=== PATIENT | female | born 1955 | race Caucasian/White ===

== ENCOUNTER 2019-03-10 13:12 | Emergency (ER) | payer MEDICAID ==
[~2019-03-10] VITALS: Ht 172.7 cm; Wt 87.5 kg
--- NOTE | 2019-03-10 13:38 | NUR ---
LOWER ABDOMINAL PAIN AND DIARRHEA X 24 HRS, PT AAOX4, -SOB, NAD NOTED, VSS ,PENDING MD GOTTI
[2019-03-10 14:22] LABS: BASOPHILS # (AUTO) 0.1 /CMM (0.0-0.2); EOSINOPHILS % (AUTO) 2.7 % (0.0-6.0); HEMATOCRIT 43 % (33-45); LYMPHOCYTES # (AUTO) 2.2 /CMM (0.8-4.8); LYMPHOCYTES % (AUTO) 26.1 % (20.0-44.0); MEAN CORPUSCULAR HGB CONC 33 g/dl (31.0-36.0); MEAN CORPUSCULAR VOLUME 88 fL (82-100); MONOCYTES # (AUTO) 0.7 /CMM (0.1-1.30); MONOCYTES % (AUTO) 8.3 % (2.0-12.0); NEUTROPHILS # (AUTO) 5.1 /CMM (1.8-8.9); NEUTROPHILS % (AUTO) 61.9 % (43.0-81.0); PLATELET COUNT (AUTO) 199 /CMM (150-450); RED BLOOD CELL COUNT(AUTO) 4.86 MIL/uL (4.0-5.2); WHITE BLOOD COUNT (AUTO) 8.2 K/uL (4.3-11.0)
[2019-03-10 14:38] LABS: ALANINE AMINOTRANSFERASE 101 U/L (12-78); ALBUMIN 3.8 g/dL (3.4-5.0); ALKALINE PHOSPHATASE 75 U/L (46-116); ASPARTATE AMINOTRANSFERASE 58 U/L (15-37); BILIRUBIN,DIRECT 0.1 mg/dL (0.0-0.2); BILIRUBIN,TOTAL 0.3 mg/dL (0.2-1.0); CALCIUM, SERUM 9.2 mg/dL (8.5-10.1); CARBON DIOXIDE 27 mmol/L (21-32); CHLORIDE 108 mmol/L (98-107); CREATININE 1.4 mg/dL (0.6-1.3); GLUCOSE 89 mg/dL (74-106); LIPASE 181 U/L (73-393); POTASSIUM 3.8 mmol/L (3.5-5.1); SODIUM SERUM 142 mmol/L (136-145); TOTAL PROTEIN, SERUM 7.9 g/dL (6.4-8.2); UREA NITROGEN, BLOOD 19 mg/dL (7-18)
[2019-03-10] MEDS ORDERED: MORPHINE SULFATE INJ 2 MG/ML DISP.SYRIN IV ONE (16:00)
[2019-03-10] MEDS ORDERED: IV NS 0.9% 1,000 ML BAG IV ONE (16:00)
[2019-03-10] MEDS ORDERED: ONDANSETRON HCL/PF 4 MG/2 ML VIAL IVP ONE (16:00)
[2019-03-10 16:03] LABS: APPEARANCE,URINE Clear (CLEAR); BILIRUBIN,URINE Negative (NEGATIVE); BLOOD, URINE Trace-intact Ery/uL (NEGATIVE); COLOR,URINE Yellow (YELLOW); KETONES,URINE Negative (NEGATIVE); LEUKOCYTE ESTERASE ,URINE Negative (NEGATIVE); NITRITE, URINE Negative (NEGATIVE); PROTEIN,URINE Negative (NEGATIVE); UGLUCOSE Negative (NEGATIVE); UROBILINOGEN,URINE 0.2 EU/dL (0.2)
[2019-03-10 16:17] LABS: WBC,URINE 0-2 /HPF (0-3)
[2019-03-10 16:18] LABS: BACTERIA,URINE Few /HPF (None Seen); SQUAMOUS EPITHELIAL CELL,UR Few /HPF (None Seen)
[2019-03-10 16:52] VITALS: BP 168/101
--- NOTE | 2019-03-10 17:35 | NUR ---
Patient discharged to home in stable condition. Written and verbal after care instructions given. Patient verbalizes understanding of instruction. IV removed. Catheter intact and site benign. Pressure and 4x4 applied to site. No bleeding noted.
== END 2019-03-10 17:36 | disposition home or self-care (01) ==
LOC: ER 13:19
DX: K57.30 Diverticulosis of large intestine without perforation or abscess without bleeding (principal); R74.0 Nonspecific elevation of levels of transaminase and lactic acid dehydrogenase [LDH]; I12.9 Hypertensive chronic kidney disease with stage 1 through stage 4 chronic kidney disease, or unspecified chronic kidney disease; N18.9 Chronic kidney disease, unspecified; M79.7 Fibromyalgia; Z98.890 Other specified postprocedural states; Z88.0 Allergy status to penicillin; Z88.6 Allergy status to analgesic agent; Z88.5 Allergy status to narcotic agent; Z60.2 Problems related to living alone; Z85.53 Personal history of malignant neoplasm of renal pelvis
CPT/HCPCS: 36415; 80048-TC; 80076-TC; 81000-TC; 83690-TC; 84484-TC; 85025-TC

== ENCOUNTER 2019-04-27 10:19 | Emergency (ER) | payer MEDICAID ==
[~2019-04-27] VITALS: Ht 172.7 cm; Wt 87.5 kg
[2019-04-27 11:11] LABS: BASOPHILS # (AUTO) 0.1 /CMM (0.0-0.2); BASOPHILS % (AUTO) 1.3 % (0.0-2.0); EOSINOPHILS % (AUTO) 5.2 % (0.0-6.0); HEMATOCRIT 40 % (33-45); HEMOGLOBIN 13.2 g/dL (11.5-14.8); LYMPHOCYTES # (AUTO) 1.5 /CMM (0.8-4.8); LYMPHOCYTES % (AUTO) 24.9 % (20.0-44.0); MEAN CORPUSCULAR HGB CONC 33 g/dl (31.0-36.0); MEAN CORPUSCULAR VOLUME 88 fL (82-100); MONOCYTES # (AUTO) 0.7 /CMM (0.1-1.30); MONOCYTES % (AUTO) 11.3 % (2.0-12.0); NEUTROPHILS # (AUTO) 3.5 /CMM (1.8-8.9); NEUTROPHILS % (AUTO) 57.3 % (43.0-81.0); PLATELET COUNT (AUTO) 175 /CMM (150-450); RED BLOOD CELL COUNT(AUTO) 4.51 MIL/uL (4.0-5.2); WHITE BLOOD COUNT (AUTO) 6.2 K/uL (4.3-11.0)
[2019-04-27 11:15] LABS: APPEARANCE,URINE Clear (CLEAR); BILIRUBIN,URINE Negative (NEGATIVE); BLOOD, URINE Moderate Ery/uL (NEGATIVE); COLOR,URINE Yellow (YELLOW); KETONES,URINE Negative (NEGATIVE); LEUKOCYTE ESTERASE ,URINE Trace (NEGATIVE); NITRITE, URINE Negative (NEGATIVE); PROTEIN,URINE Negative (NEGATIVE); UGLUCOSE Negative (NEGATIVE)
[2019-04-27 11:17] LABS: CARBON DIOXIDE 25 mmol/L (21-32); CHLORIDE 106 mmol/L (98-107); CREATININE 1.2 mg/dL (0.6-1.3); GLUCOSE 107 mg/dL (74-106); POTASSIUM 4.4 mmol/L (3.5-5.1); SODIUM SERUM 142 mmol/L (136-145); UREA NITROGEN, BLOOD 29 mg/dL (7-18)
[2019-04-27 11:20] LABS: BACTERIA,URINE Few /HPF (None Seen); SQUAMOUS EPITHELIAL CELL,UR Few /HPF (None Seen)
--- NOTE | 2019-04-27 11:30 | NUR ---
"Threw my back out couple days ago woke up this am felt UTI symptoms but then I started feeling weird/Faint/dizzy/out of breath", pt awake, alert, -sob, nad noted, vss, pending md gaxiola
[2019-04-27] MEDS ORDERED: ONDANSETRON HCL/PF 4 MG/2 ML VIAL ONE (11:58)
[2019-04-27] MEDS ORDERED: ONDANSETRON HCL/PF - ER 4 MG/2 ML VIAL IV ONE (12:00)
[2019-04-27 12:45] VITALS: BP 133/90
== END 2019-04-27 13:08 | disposition home or self-care (01) ==
LOC: ER 10:20
DX: N39.0 Urinary tract infection, site not specified (principal); R07.89 Other chest pain; M54.5 Low back pain; I10 Essential (primary) hypertension; K58.9 Irritable bowel syndrome, unspecified; M79.7 Fibromyalgia; M32.9 Systemic lupus erythematosus, unspecified; Z90.5 Acquired absence of kidney; Z85.53 Personal history of malignant neoplasm of renal pelvis; Z88.0 Allergy status to penicillin; Z88.6 Allergy status to analgesic agent; Z88.5 Allergy status to narcotic agent; Z60.2 Problems related to living alone
CPT/HCPCS: 36415; 71045; 80048; 81001; 84484; 85025; 93005 ×3; 96374; 99284; J2405; 81000-TC

== ENCOUNTER 2019-06-19 04:47 | Emergency (ER) | payer MEDICAID ==
[~2019-06-19] VITALS: Ht 172.7 cm; Wt 87.1 kg
[2019-06-19] MEDS ORDERED: MORPHINE SULFATE INJ 4 MG/ML DISP.SYRIN ONE ×2 (05:27→07:29)
[2019-06-19] MEDS ORDERED: ONDANSETRON HCL/PF 4 MG/2 ML VIAL ONE (05:27)
[2019-06-19] MEDS ORDERED: ONDANSETRON HCL/PF 4 MG/2 ML VIAL IVP ONE (05:30)
[2019-06-19] MEDS ORDERED: MORPHINE SULFATE INJ 2 MG/ML DISP.SYRIN IV ONE ×2 (05:30→07:30)
[2019-06-19] MEDS ORDERED: IV NS 0.9% 1,000 ML BAG IV ONE (05:30)
--- NOTE | 2019-06-19 05:40 | NUR ---
PT AAOX4. AMBULATORY WITH STEADY GAIT. C/P LOWER ABD PAIN. PT NOTED SHE COULDNT SLEEP. VSS. RR EVEN AND UNLABORED, NO ACUTE DISTRESS NOTED. VSS. AWAITING MD FOR EVAL. WILL CONTINUE TO MONITOR.
--- NOTE | 2019-06-19 05:49 | NUR ---
SITE SURVEYOR AT BEDSIDE, LABS AND URINE GIVEN. VSS.
[2019-06-19 05:50] LABS: BASOPHILS # (AUTO) 0.1 /CMM (0.0-0.2); BASOPHILS % (AUTO) 1.4 % (0.0-2.0); HEMATOCRIT 41 % (33-45); HEMOGLOBIN 13.6 g/dL (11.5-14.8); LYMPHOCYTES # (AUTO) 2.1 /CMM (0.8-4.8); MEAN CORPUSCULAR HGB CONC 34 g/dl (31.0-36.0); MEAN CORPUSCULAR VOLUME 87 fL (82-100); MONOCYTES # (AUTO) 0.8 /CMM (0.1-1.30); MONOCYTES % (AUTO) 8.6 % (2.0-12.0); NEUTROPHILS # (AUTO) 6.5 /CMM (1.8-8.9); PLATELET COUNT (AUTO) 204 /CMM (150-450); RED BLOOD CELL COUNT(AUTO) 4.67 MIL/uL (4.0-5.2); WHITE BLOOD COUNT (AUTO) 9.8 K/uL (4.3-11.0)
[2019-06-19 05:53] LABS: APPEARANCE,URINE Clear (CLEAR); BILIRUBIN,URINE Negative (NEGATIVE); BLOOD, URINE Small Ery/uL (NEGATIVE); COLOR,URINE Yellow (YELLOW); KETONES,URINE Negative (NEGATIVE); LEUKOCYTE ESTERASE ,URINE Trace (NEGATIVE); NITRITE, URINE Negative (NEGATIVE); PH,URINE 6.5 (5.0-8.0); PROTEIN,URINE Negative (NEGATIVE); UGLUCOSE Negative (NEGATIVE); UROBILINOGEN,URINE 0.2 EU/dL (0.2)
[2019-06-19 06:00] LABS: CALCIUM, SERUM 8.5 mg/dL (8.5-10.1); CREATININE 1.1 mg/dL (0.6-1.3); POTASSIUM 4.3 mmol/L (3.5-5.1)
--- NOTE | 2019-06-19 06:03 | NUR ---
US AT BEDSIDE
[2019-06-19 06:06] LABS: ALBUMIN 3.5 g/dL (3.4-5.0); BILIRUBIN,DIRECT 0.1 mg/dL (0.0-0.2); BILIRUBIN,TOTAL 0.6 mg/dL (0.2-1.0); TOTAL PROTEIN, SERUM 7.5 g/dL (6.4-8.2)
[2019-06-19 06:36] LABS: BACTERIA,URINE Few /HPF (None Seen); SQUAMOUS EPITHELIAL CELL,UR Few /HPF (None Seen)
--- NOTE | 2019-06-19 06:48 | NUR ---
PT AMBULATED TO RESTROOM
--- NOTE | 2019-06-19 06:53 | NUR ---
US TECH AT BEDSIDE.
[2019-06-19] MEDS ORDERED: LABE100T5 PO (07:39)
[2019-06-19] MEDS ORDERED: ATOR20TA PO (07:39)
[2019-06-19] MEDS ORDERED: LEVO50TA8 PO (07:39)
[2019-06-19] MEDS ORDERED: LOSA100T31 PO (07:39)
[2019-06-19] MEDS ORDERED: PANT40TA4 PO (07:39)
[2019-06-19] MEDS ORDERED: HYDR200T4 PO (07:39)
[2019-06-19] MEDS ORDERED: MONT10TA22 PO (07:39)
[2019-06-19] MEDS ORDERED: DICY20TA11 PO (07:39)
[2019-06-19] MEDS ORDERED: GABA-532 PO (07:39)
[2019-06-19] MEDS ORDERED: ONDA4TAB11 PO (07:39)
[2019-06-19 08:00] VITALS: BP 145/77
--- NOTE | 2019-06-19 08:00 | NUR ---
Patient discharged to home in stable condition. Written and verbal after care instructions given. Patient verbalizes understanding of instruction.IV removed. Catheter intact and site benign. Pressure and 4x4 applied to site. No bleeding noted.
== END 2019-06-19 08:00 | disposition home or self-care (01) ==
LOC: ER 04:48
DX: R10.30 Lower abdominal pain, unspecified (principal); R10.2 Pelvic and perineal pain; R19.7 Diarrhea, unspecified; I10 Essential (primary) hypertension; E78.5 Hyperlipidemia, unspecified; M79.7 Fibromyalgia; M32.9 Systemic lupus erythematosus, unspecified; E03.9 Hypothyroidism, unspecified; K58.9 Irritable bowel syndrome, unspecified; Z90.5 Acquired absence of kidney; Z88.0 Allergy status to penicillin; Z60.2 Problems related to living alone; Z79.899 Other long term (current) drug therapy
CPT/HCPCS: 36415; 76700; 76856; 80048; 80076; 81001; 83690; 85025; 87086; 96361; 96374; 96375; 96376; 99285; J2270 ×2; J2405; J7030; 81000-TC

== ENCOUNTER 2019-07-18 13:35 | Emergency (ER) | payer MEDICAID ==
[~2019-07-18] VITALS: Ht 170.2 cm; Wt 74.8 kg
[~2019-07-18 13:35] MED LIST: ATOR20TA PO; DICY20TA11 PO; GABA-532 PO; HYDR200T4 PO; LABE100T5 PO; LEVO50TA8 PO; LOSA100T31 PO; MONT10TA22 PO; ONDA4TAB11 PO; PANT40TA4 PO
--- NOTE | 2019-07-18 13:49 | NUR ---
COUGH, CONGESTION, AND FEVER X 2 WEEKS, pt awake, alert, vss, pending er provider eval
[2019-07-18] MEDS ORDERED: ONDANSETRON HCL/PF 4 MG/2 ML VIAL IVP ONE (15:00)
[2019-07-18] MEDS ORDERED: KETOROLAC TROMETHAMINE INJ 30 MG/ML VIAL IV ONE (15:00)
[2019-07-18] MEDS ORDERED: ONDANSETRON HCL/PF - ER 4 MG/2 ML VIAL IV ONE (15:00)
[2019-07-18] MEDS ORDERED: PANTOPRAZOLE 40 MG VIAL IV ONE (15:00)
[2019-07-18] MEDS ORDERED: PANTOPRAZOLE 40 MG VIAL ONE (15:07)
[2019-07-18] MEDS ORDERED: ONDANSETRON HCL/PF 4 MG/2 ML VIAL ONE (15:07)
[2019-07-18] MEDS ORDERED: KETOROLAC TROMETHAMINE 15 MG/ML VIAL ONE (15:07)
--- NOTE | 2019-07-18 15:30 | NUR ---
covid swab sent to lab
[2019-07-18 15:39] LABS: BASOPHILS % (AUTO) 0.4 % (0.0-2.0); EOSINOPHILS % (AUTO) 3.1 % (0.0-6.0); HEMATOCRIT 41 % (33-45); HEMOGLOBIN 13.4 g/dL (11.5-14.8); LYMPHOCYTES # (AUTO) 1.8 /CMM (0.8-4.8); MEAN CORPUSCULAR HGB CONC 33 g/dl (31.0-36.0); MEAN CORPUSCULAR VOLUME 87 fL (82-100); MONOCYTES # (AUTO) 0.6 /CMM (0.1-1.30); MONOCYTES % (AUTO) 10.3 % (2.0-12.0); NEUTROPHILS # (AUTO) 3.6 /CMM (1.8-8.9); NEUTROPHILS % (AUTO) 57.2 % (43.0-81.0); PLATELET COUNT (AUTO) 190 /CMM (150-450); RED BLOOD CELL COUNT(AUTO) 4.71 MIL/uL (4.0-5.2); WHITE BLOOD COUNT (AUTO) 6.3 K/uL (4.3-11.0)
[2019-07-18 15:45] LABS: CREATININE 1.5 mg/dL (0.6-1.3); POTASSIUM 4.3 mmol/L (3.5-5.1)
[2019-07-18 15:51] LABS: ALBUMIN 3.3 g/dL (3.4-5.0); BILIRUBIN,DIRECT 0.1 mg/dL (0.0-0.2); BILIRUBIN,TOTAL 0.4 mg/dL (0.2-1.0); TOTAL PROTEIN, SERUM 7.5 g/dL (6.4-8.2)
[2019-07-18 15:58] LABS: APPEARANCE,URINE Clear (CLEAR); BILIRUBIN,URINE Negative (NEGATIVE); BLOOD, URINE Negative Ery/uL (NEGATIVE); COLOR,URINE Yellow (YELLOW); KETONES,URINE Negative (NEGATIVE); LEUKOCYTE ESTERASE ,URINE Trace (NEGATIVE); NITRITE, URINE Negative (NEGATIVE); PH,URINE 8.5 (5.0-8.0); PROTEIN,URINE Negative (NEGATIVE); UGLUCOSE Negative (NEGATIVE)
[2019-07-18 16:43] LABS: BACTERIA,URINE None seen /HPF (None Seen); RBC,URINE 0-2 /HPF (0-2); SQUAMOUS EPITHELIAL CELL,UR Few /HPF (None Seen)
[2019-07-18 16:58] VITALS: BP 150/75
== END 2019-07-18 16:58 | disposition home or self-care (01) ==
LOC: ER 13:38
DX: U07.1 COVID-19 (principal); J12.89 Other viral pneumonia; Z90.5 Acquired absence of kidney; M32.9 Systemic lupus erythematosus, unspecified; E03.9 Hypothyroidism, unspecified; E78.5 Hyperlipidemia, unspecified; N28.9 Disorder of kidney and ureter, unspecified; Z85.528 Personal history of other malignant neoplasm of kidney; M79.7 Fibromyalgia; R10.13 Epigastric pain; K80.70 Calculus of gallbladder and bile duct without cholecystitis without obstruction
CPT/HCPCS: 36415; 71045; 80048; 80076; 81001; 83690; 85025; 87040 ×2; 87635; 96374; 96375; 99284; C9113; J1885; J2405 ×2; 81000-TC

== ENCOUNTER 2019-07-30 23:50 | Emergency (ER) | payer MEDICAID ==
[~2019-07-30] VITALS: Ht 172.7 cm; Wt 82.6 kg
--- NOTE | 2019-07-31 | NUR ---
PT CAME TO THE ED C/O HIGH BLOOD PRESSURE AT HOME. PER PT BP'S IN THE 180S. 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 PT AAOX4, RR EVEN AND UNLABORED ON RA NAD NOTED. PT CONNECTED TO THE CARDIAC ,MONITOR AND POX
[2019-07-31] MEDS ORDERED: CLONIDINE HCL 0.1 MG TABLET ONE (00:22)
[2019-07-31] MEDS ORDERED: LORAZEPAM 0.5 MG TABLET ONE (00:22)
[2019-07-31] MEDS ORDERED: LORAZEPAM 1 MG TABLET PO ONE (00:30)
[2019-07-31] MEDS ORDERED: CLONIDINE HCL 0.1 MG TABLET PO ONE (00:30)
--- NOTE | 2019-07-31 00:44 | NUR ---
DR HAM AT BEDSIDE
[2019-07-31 01:54] VITALS: BP 153/79
--- NOTE | 2019-07-31 01:54 | NUR ---
Patient discharged to home in stable condition. Written and verbal after care instructions given. Patient verbalizes understanding of instruction. ambulatory with a steady gait
== END 2019-07-31 01:55 | disposition home or self-care (01) ==
LOC: ER 23:50
DX: I10 Essential (primary) hypertension (principal); F41.9 Anxiety disorder, unspecified; E78.5 Hyperlipidemia, unspecified; E03.9 Hypothyroidism, unspecified; Z85.53 Personal history of malignant neoplasm of renal pelvis; Z90.5 Acquired absence of kidney; Z88.0 Allergy status to penicillin; Z60.2 Problems related to living alone; Z79.899 Other long term (current) drug therapy

== ENCOUNTER 2019-08-07 02:22 | Emergency (ER) | payer MEDICAID ==
[~2019-08-07] VITALS: Ht 172.7 cm; Wt 83.9 kg
--- NOTE | 2019-08-07 02:52 | NUR ---
PATIENT CAME TO ER BED 8 C/O NUMBNESS AND TINGLING LEFT ARM. 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 PATIENT'S SENSATION FOR LEFT AND RIGHT ARM HAVE THE SAME SENSATION. AAOX4. NO SOB .BREATHING EVENLY AND UNLABORED ON ROOM. CONNECTED TO MONITOR.
[2019-08-07] MEDS ORDERED: LORAZEPAM 0.5 MG TABLET PO ONE (03:00)
[2019-08-07] MEDS ORDERED: LORAZEPAM 0.5 MG TABLET ONE (03:02)
--- NOTE | 2019-08-07 03:05 | NUR ---
NICKEL OPERATOR AT BEDSIDE.
[2019-08-07 03:46] VITALS: BP 129/67
--- NOTE | 2019-08-07 03:46 | NUR ---
Patient discharged to home in stable condition. Written and verbal after care instructions given. Patient verbalizes understanding of instruction.
== END 2019-08-07 03:46 | disposition home or self-care (01) ==
LOC: ER 02:24
DX: R07.89 Other chest pain (principal); I10 Essential (primary) hypertension; E03.9 Hypothyroidism, unspecified; M79.7 Fibromyalgia; M32.9 Systemic lupus erythematosus, unspecified; Z98.890 Other specified postprocedural states; Z88.0 Allergy status to penicillin; Z60.2 Problems related to living alone; Z79.899 Other long term (current) drug therapy
CPT/HCPCS: 36415; 84484-TC

== ENCOUNTER 2019-08-16 14:32 | Emergency (ER) | payer MEDICAID ==
[~2019-08-16] VITALS: Ht 172.7 cm; Wt 83.9 kg
--- NOTE | 2019-08-16 14:43 | NUR ---
CAME IN FOR HEADACHE, L SIDED NUMBNESS, CHEST PRESSURE SINCE 07/02/19, TO ER BED 9, HOOKED TO MONITOR, CHANGED TO HOSP GOWN, WARM BLANKET PROVIDED, DR IVAN AT BEDSIDE
[2019-08-16 15:30] LABS: CALCIUM, SERUM 8.8 mg/dL (8.5-10.1); CREATININE 1.1 mg/dL (0.6-1.3)
--- NOTE | 2019-08-16 16:24 | NUR ---
Patient discharged to home in stable condition. Written and verbal after care instructions given. Patient verbalizes understanding of instruction.
[2019-08-16 16:26] VITALS: BP 127/69
== END 2019-08-16 16:27 | disposition home or self-care (01) ==
LOC: ER 14:32
DX: R51 Headache (principal); I10 Essential (primary) hypertension; E78.5 Hyperlipidemia, unspecified; E03.9 Hypothyroidism, unspecified; Z90.5 Acquired absence of kidney; Z88.0 Allergy status to penicillin; Z60.2 Problems related to living alone; Z79.899 Other long term (current) drug therapy
CPT/HCPCS: 36415; 70450-TC; 71045-TC; 80048-TC

== ENCOUNTER 2019-08-25 12:17 | Emergency (ER) | payer MEDICAID ==
[~2019-08-25] VITALS: Ht 172.7 cm; Wt 83.9 kg
--- NOTE | 2019-08-25 12:30 | NUR ---
patient came in to the er c/o dizziness, headache and bilateral ear plugged since 5am this morning "feels like the room is spinning", Hx +covid 19. On room air, breathing evenly and unlabored. connected to the monitor and pulse ox. kept comfortable, will continue to monitor accordingly.
[2019-08-25] MEDS ORDERED: ONDANSETRON HCL/PF 4 MG/2 ML VIAL IVP ONE (13:30)
[2019-08-25] MEDS ORDERED: KETOROLAC TROMETHAMINE INJ 30 MG/ML VIAL IV ONE (13:30)
[2019-08-25] MEDS ORDERED: IV NS 0.9% 1,000 ML BAG IV ONE (13:30)
[2019-08-25] MEDS ORDERED: ONDANSETRON HCL/PF 4 MG/2 ML VIAL ONE (13:35)
[2019-08-25] MEDS ORDERED: KETOROLAC TROMETHAMINE 15 MG/ML VIAL ONE (13:35)
[2019-08-25 14:20] LABS: BASOPHILS # (AUTO) 0.1 /CMM (0.0-0.2); BASOPHILS % (AUTO) 1.3 % (0.0-2.0); EOSINOPHILS % (AUTO) 5.3 % (0.0-6.0); HEMATOCRIT 41 % (33-45); HEMOGLOBIN 13.6 g/dL (11.5-14.8); LYMPHOCYTES # (AUTO) 2.4 /CMM (0.8-4.8); LYMPHOCYTES % (AUTO) 32.7 % (20.0-44.0); MEAN CORPUSCULAR HGB CONC 33 g/dl (31.0-36.0); MEAN CORPUSCULAR VOLUME 88 fL (82-100); MONOCYTES # (AUTO) 0.6 /CMM (0.1-1.30); MONOCYTES % (AUTO) 8.1 % (2.0-12.0); NEUTROPHILS # (AUTO) 3.9 /CMM (1.8-8.9); NEUTROPHILS % (AUTO) 52.6 % (43.0-81.0); PLATELET COUNT (AUTO) 188 /CMM (150-450); RED BLOOD CELL COUNT(AUTO) 4.69 MIL/uL (4.0-5.2); WHITE BLOOD COUNT (AUTO) 7.4 K/uL (4.3-11.0)
[2019-08-25 14:22] LABS: APPEARANCE,URINE Clear (CLEAR); BILIRUBIN,URINE Negative (NEGATIVE); KETONES,URINE Negative (NEGATIVE); LEUKOCYTE ESTERASE ,URINE Negative (NEGATIVE); NITRITE, URINE Negative (NEGATIVE); PROTEIN,URINE Negative (NEGATIVE); UGLUCOSE Negative (NEGATIVE); UROBILINOGEN,URINE 0.2 EU/dL (0.2)
[2019-08-25 14:28] LABS: BLOOD, URINE NEGATIVE Ery/uL (NEGATIVE); CALCIUM, SERUM 9.2 mg/dL (8.5-10.1); COLOR,URINE Light yellow (YELLOW); CREATININE 1.3 mg/dL (0.6-1.3); POTASSIUM 4.6 mmol/L (3.5-5.1)
[2019-08-25 14:34] LABS: BILIRUBIN,DIRECT 0.1 mg/dL (0.0-0.2); BILIRUBIN,TOTAL 0.4 mg/dL (0.2-1.0); TOTAL PROTEIN, SERUM 8.2 g/dL (6.4-8.2)
[2019-08-25] MEDS ORDERED: MECLIZINE HCL 12.5 MG TABLET PO ONE (15:00)
[2019-08-25] MEDS ORDERED: MECLIZINE HCL 25 MG TABLET ONE (15:27)
[2019-08-25 15:30] VITALS: BP 128/80
== END 2019-08-25 15:31 | disposition home or self-care (01) ==
LOC: ER 12:21
DX: R42 Dizziness and giddiness (principal); R51 Headache; I10 Essential (primary) hypertension; E78.5 Hyperlipidemia, unspecified; Z85.53 Personal history of malignant neoplasm of renal pelvis; Z90.5 Acquired absence of kidney; Z88.0 Allergy status to penicillin; Z60.2 Problems related to living alone; Z79.899 Other long term (current) drug therapy; E66.9 Obesity, unspecified; Z68.28 Body mass index [BMI] 28.0-28.9, adult
CPT/HCPCS: 36415; 80048; 80076; 81001; 83690; 85025; 96374; 96375; 99284; J1885; J2405; J7030; J8597; 81000-TC

== ENCOUNTER 2019-10-10 10:03 | Emergency (ER) | payer MEDICAID ==
[~2019-10-10] VITALS: Ht 172.7 cm; Wt 83.9 kg
--- NOTE | 2019-10-10 10:30 | NUR ---
BIBS FROM HOME TO ER BED 6. AAOX4. NOT IN RESP DISTRESS. AMBULATORY. CAME IN FOR R LOWER RIB AREA PAIN RADIATING TO BACK FOR SEVERAL WEEKS. PT IS ALCO C/O BURNING SENSATION WHEN URINATING AND URINARY FREQUENCY OVER THE WEEKEND. MD WAS AT THE BEDSIDE FOR EVAL. ORDERS RECEIVED NOTED AND CARRIED OUT. ELECTRO MECHANICAL TECHNICIAN AT BEDSIDE FOR BLOOD DRAW, URINE COLLECTED AND SENT TO LAB. XRAY AWAITING AT BEDSIDE
--- NOTE | 2019-10-10 10:40 | NUR ---
urine collected and sent to lab
[2019-10-10 10:45] LABS: BASOPHILS # (AUTO) 0.1 /CMM (0.0-0.2); BASOPHILS % (AUTO) 1.4 % (0.0-2.0); HEMATOCRIT 41 % (33-45); HEMOGLOBIN 13.7 g/dL (11.5-14.8); LYMPHOCYTES # (AUTO) 1.8 /CMM (0.8-4.8); LYMPHOCYTES % (AUTO) 29.2 % (20.0-44.0); MEAN CORPUSCULAR HGB CONC 34 g/dl (31.0-36.0); MEAN CORPUSCULAR VOLUME 89 fL (82-100); MONOCYTES # (AUTO) 0.4 /CMM (0.1-1.30); MONOCYTES % (AUTO) 6.8 % (2.0-12.0); NEUTROPHILS # (AUTO) 3.5 /CMM (1.8-8.9); NEUTROPHILS % (AUTO) 56.6 % (43.0-81.0); PLATELET COUNT (AUTO) 185 /CMM (150-450); RED BLOOD CELL COUNT(AUTO) 4.61 MIL/uL (4.0-5.2); WHITE BLOOD COUNT (AUTO) 6.2 K/uL (4.3-11.0)
[2019-10-10 10:52] LABS: CREATININE 1.3 mg/dL (0.6-1.3)
[2019-10-10 11:04] LABS: ALBUMIN 3.8 g/dL (3.4-5.0); BILIRUBIN,DIRECT 0.1 mg/dL (0.0-0.2); BILIRUBIN,TOTAL 0.5 mg/dL (0.2-1.0); TOTAL PROTEIN, SERUM 7.6 g/dL (6.4-8.2)
[2019-10-10 11:12] LABS: APPEARANCE,URINE Clear (CLEAR); BILIRUBIN,URINE Negative (NEGATIVE); BLOOD, URINE Negative Ery/uL (NEGATIVE); COLOR,URINE Yellow (YELLOW); KETONES,URINE Trace (NEGATIVE); LEUKOCYTE ESTERASE ,URINE Negative (NEGATIVE); NITRITE, URINE Negative (NEGATIVE); PH,URINE 5.5 (5.0-8.0); PROTEIN,URINE Negative (NEGATIVE); UGLUCOSE Negative (NEGATIVE); UROBILINOGEN,URINE 0.2 EU/dL (0.2)
[2019-10-10 11:16] LABS: BACTERIA,URINE Few /HPF (None Seen); RBC,URINE 0-2 /HPF (0-2); SQUAMOUS EPITHELIAL CELL,UR Few /HPF (None Seen); WBC,URINE 0-2 /HPF (0-3)
[2019-10-10] MEDS ORDERED: ACETAMINOPHEN 325 MG TABLET PO ONE (11:30)
[2019-10-10] MEDS ORDERED: ACETAMINOPHEN 325 MG TABLET ONE (11:33)
[2019-10-10 11:44] VITALS: BP 148/85
--- NOTE | 2019-10-10 11:46 | NUR ---
Patient discharged to home in stable condition. Written and verbal after care instructions given. Patient verbalizes understanding of instruction.IV removed. Catheter intact and site benign. Pressure and 4x4 applied to site. No bleeding noted. Pt ambulatory with a steady gait
== END 2019-10-10 12:04 | disposition home or self-care (01) ==
LOC: ER 10:04
DX: R30.0 Dysuria (principal); R10.30 Lower abdominal pain, unspecified; L50.9 Urticaria, unspecified; I10 Essential (primary) hypertension; E78.5 Hyperlipidemia, unspecified; E03.9 Hypothyroidism, unspecified; M79.7 Fibromyalgia; Z85.53 Personal history of malignant neoplasm of renal pelvis; Z90.5 Acquired absence of kidney; Z88.0 Allergy status to penicillin; Z79.899 Other long term (current) drug therapy
CPT/HCPCS: 36415; 71045-TC; 80048-TC; 80076-TC; 81000-TC; 85025-TC

== ENCOUNTER 2019-12-30 10:48 | Emergency (ER) | payer MEDICAID ==
[~2019-12-30] VITALS: Ht 167.6 cm; Wt 89.8 kg
[~2019-12-30 10:48] MED LIST changes: -PANT40TA4 PO; +PANT40TA49 PO
--- NOTE | 2019-12-30 10:48 | NUR ---
PT BIB SELF C/O CHEST PRESSURE AND BILATERAL LOWER EXTREMITY PAIN FOR 3 DAYS. PT IS AAOX4, NOT IN RESPIRATORY DISTRESS, HOOKED TO RAT TRAPPER, KEPT RESTED AND COMFORTABLE. WILL CONTINUE TO MONITOR.
[2019-12-30] MEDS ORDERED: ONDANSETRON HCL/PF 4 MG/2 ML VIAL IVP ONE (11:00)
[2019-12-30] MEDS ORDERED: IV NS 0.9% 1,000 ML BAG IV ONE (11:00)
--- NOTE | 2019-12-30 11:03 | NUR ---
IV LINE ESTABLISHED BLOOD DRAWN AND SENT TO LAB.
[2019-12-30 11:10] LABS: BASOPHILS # (AUTO) 0.1 /CMM (0.0-0.2); EOSINOPHILS % (AUTO) 6.6 % (0.0-6.0); HEMATOCRIT 42 % (33-45); HEMOGLOBIN 13.7 g/dL (11.5-14.8); LYMPHOCYTES # (AUTO) 1.9 /CMM (0.8-4.8); LYMPHOCYTES % (AUTO) 29.9 % (20.0-44.0); MEAN CORPUSCULAR HGB CONC 33 g/dl (31.0-36.0); MEAN CORPUSCULAR VOLUME 88 fL (82-100); MONOCYTES # (AUTO) 0.6 /CMM (0.1-1.30); MONOCYTES % (AUTO) 8.5 % (2.0-12.0); NEUTROPHILS # (AUTO) 3.5 /CMM (1.8-8.9); PLATELET COUNT (AUTO) 214 /CMM (150-450); RED BLOOD CELL COUNT(AUTO) 4.76 MIL/uL (4.0-5.2); WHITE BLOOD COUNT (AUTO) 6.5 K/uL (4.3-11.0)
[2019-12-30] MEDS ORDERED: ONDANSETRON HCL/PF 4 MG/2 ML VIAL ONE (11:10)
--- NOTE | 2019-12-30 11:13 | NUR ---
XRAY AT BEDSIDE.
[2019-12-30 11:17] LABS: CALCIUM, SERUM 9.2 mg/dL (8.5-10.1); CARBON DIOXIDE 26 mmol/L (21-32); CHLORIDE 106 mmol/L (98-107); CREATININE 1.3 mg/dL (0.6-1.3); GLUCOSE 98 mg/dL (74-106); POTASSIUM 4.6 mmol/L (3.5-5.1); SODIUM SERUM 139 mmol/L (136-145); UREA NITROGEN, BLOOD 22 mg/dL (7-18)
[2019-12-30 11:29] LABS: ALANINE AMINOTRANSFERASE 27 U/L (12-78); ALBUMIN 3.7 g/dL (3.4-5.0); ALKALINE PHOSPHATASE 64 U/L (46-116); ASPARTATE AMINOTRANSFERASE 19 U/L (15-37); B-TYPE NATRIURETIC PEPTIDE 64 PG/ML (0-125); BILIRUBIN,DIRECT 0.1 mg/dL (0.0-0.2); BILIRUBIN,TOTAL 0.6 mg/dL (0.2-1.0); TOTAL PROTEIN, SERUM 7.8 g/dL (6.4-8.2)
--- NOTE | 2019-12-30 11:55 | NUR ---
URINE SPECIMEN COLLECTED AND SENT TO LAB.
[2019-12-30 11:58] LABS: APPEARANCE,URINE Clear (CLEAR); BILIRUBIN,URINE Negative (NEGATIVE); BLOOD, URINE Trace-intact Ery/uL (NEGATIVE); COLOR,URINE Yellow (YELLOW); KETONES,URINE Negative (NEGATIVE); LEUKOCYTE ESTERASE ,URINE Small (NEGATIVE); NITRITE, URINE Negative (NEGATIVE); PH,URINE 7.5 (5.0-8.0); PROTEIN,URINE Negative (NEGATIVE); UGLUCOSE Negative (NEGATIVE); UROBILINOGEN,URINE 0.2 EU/dL (0.2)
[2019-12-30 12:07] LABS: BACTERIA,URINE Few /HPF (None Seen); RBC,URINE 0-2 /HPF (0-2); SQUAMOUS EPITHELIAL CELL,UR Few /HPF (None Seen)
--- NOTE | 2019-12-30 12:18 | NUR ---
IV removed. Catheter intact and site benign. Pressure and 4x4 applied to site. No bleeding noted. Patient discharged to home in stable condition. Written and verbal after care instructions given. Patient verbalizes understanding of instruction.
[2019-12-30 12:19] VITALS: BP 126/89
== END 2019-12-30 12:19 | disposition home or self-care (01) ==
LOC: ER 10:50
DX: E86.0 Dehydration (principal); M79.10 Myalgia, unspecified site; E78.5 Hyperlipidemia, unspecified; K58.9 Irritable bowel syndrome, unspecified; E03.9 Hypothyroidism, unspecified; Z90.5 Acquired absence of kidney; Z79.899 Other long term (current) drug therapy
CPT/HCPCS: 36415; 71045 ×2; 80048; 80076; 81001; 82550; 83880; 84484; 85025; 93005 ×3; 96361; 96374; 99285; J2405; J7030; 81000-TC

== ENCOUNTER 2020-01-08 10:21 | Emergency (ER) | payer MEDICAID ==
[2020-01-08] MEDS ORDERED: MORPHINE SULFATE INJ 4 MG/ML DISP.SYRIN ONE ×2 (10:57→12:11)
[2020-01-08] MEDS ORDERED: ONDANSETRON HCL/PF 4 MG/2 ML VIAL ONE (10:57)
[2020-01-08] MEDS ORDERED: IV NS 0.9% 500 ML BAG IV ONE (11:00)
[2020-01-08] MEDS ORDERED: ONDANSETRON HCL/PF 4 MG/2 ML VIAL IVP ONE (11:00)
[2020-01-08] MEDS ORDERED: MORPHINE SULFATE INJ 2 MG/ML DISP.SYRIN IV ONE ×2 (11:00→12:30)
== END 2020-01-08 12:20 | disposition home or self-care (01) ==
DX: K57.92 Diverticulitis of intestine, part unspecified, without perforation or abscess without bleeding (principal); I10 Essential (primary) hypertension; E78.5 Hyperlipidemia, unspecified; E03.9 Hypothyroidism, unspecified; Z90.5 Acquired absence of kidney; Z88.0 Allergy status to penicillin; Z60.2 Problems related to living alone; Z79.899 Other long term (current) drug therapy
CPT/HCPCS: 36415; 80048; 80076; 81001; 83690; 85025; 87086; 96374; 96375; 99284; J2270; J2405; J7040

== ENCOUNTER 2020-05-12 11:34 | Emergency (ER) | payer MEDICAID ==
[~2020-05-12] VITALS: Ht 170.2 cm; Wt 77.1 kg
[2020-05-12] MEDS ORDERED: KETOROLAC TROMETHAMINE INJ 30 MG/ML VIAL IV ONE (12:00)
[2020-05-12] MEDS ORDERED: MORPHINE SULFATE INJ 2 MG/ML DISP.SYRIN IV ONE (12:00)
[2020-05-12] MEDS ORDERED: IV NS 0.9% 1,000 ML BAG IV ONE (12:00)
[2020-05-12] MEDS ORDERED: IOHEXOL-300 100 ML VIAL IV ONE (12:13)
[2020-05-12] MEDS ORDERED: IV NS 0.9% 250 ML IV ONE (12:13)
[2020-05-12] MEDS ORDERED: KETOROLAC TROMETHAMINE INJ 30 MG/ML VIAL ONE (12:22)
[2020-05-12 12:25] LABS: BASOPHILS # (AUTO) 0.1 /CMM (0.0-0.2); BASOPHILS % (AUTO) 0.9 % (0.0-2.0); EOSINOPHILS % (AUTO) 4.7 % (0.0-6.0); HEMATOCRIT 40 % (33-45); LYMPHOCYTES # (AUTO) 2.1 /CMM (0.8-4.8); LYMPHOCYTES % (AUTO) 23.2 % (20.0-44.0); MEAN CORPUSCULAR HGB CONC 33 g/dl (31.0-36.0); MEAN CORPUSCULAR VOLUME 86 fL (82-100); MONOCYTES # (AUTO) 0.7 /CMM (0.1-1.30); MONOCYTES % (AUTO) 7.6 % (2.0-12.0); NEUTROPHILS # (AUTO) 5.7 /CMM (1.8-8.9); NEUTROPHILS % (AUTO) 63.6 % (43.0-81.0); PLATELET COUNT (AUTO) 223 /CMM (150-450); RED BLOOD CELL COUNT(AUTO) 4.58 MIL/uL (4.0-5.2); WHITE BLOOD COUNT (AUTO) 8.9 K/uL (4.3-11.0)
--- NOTE | 2020-05-12 12:31 | NUR ---
Patient awake alert c/c abd. pain x 2 weeks started RFa saline lock noted blood return and able to drw blood .
--- NOTE | 2020-05-12 12:35 | NUR ---
Ultra sound @ bedside .
[2020-05-12 12:38] LABS: CALCIUM, SERUM 8.9 mg/dL (8.5-10.1); POTASSIUM 4.3 mmol/L (3.5-5.1)
[2020-05-12 12:44] LABS: ALBUMIN 3.4 g/dL (3.4-5.0); BILIRUBIN,DIRECT 0.1 mg/dL (0.0-0.2); BILIRUBIN,TOTAL 0.3 mg/dL (0.2-1.0); TOTAL PROTEIN, SERUM 7.4 g/dL (6.4-8.2)
[2020-05-12] MEDS ORDERED: MORPHINE SULFATE INJ 4 MG/ML DISP.SYRIN ONE (12:49)
--- NOTE | 2020-05-12 14:01 | NUR ---
Dr. asif bedside for Ct result .
[2020-05-12 14:07] LABS: BILIRUBIN,URINE NEGATIVE (NEGATIVE); COLOR,URINE YELLOW (YELLOW); LEUKOCYTE ESTERASE ,URINE TRACE (NEGATIVE); NITRITE, URINE NEGATIVE (NEGATIVE); PH,URINE 6.5 (5.0-8.0); PROTEIN,URINE NEGATIVE (NEGATIVE); UGLUCOSE NEGATIVE (NEGATIVE); UROBILINOGEN,URINE 0.2 EU/dL (0.2)
[2020-05-12 14:10] LABS: BACTERIA,URINE Rare /HPF (None Seen); RBC,URINE 0-2 /HPF (0-2); SQUAMOUS EPITHELIAL CELL,UR Few /HPF (None Seen)
--- NOTE | 2020-05-12 14:46 | NUR ---
Patient DC home instruction given agree to see PMd in AM given result copy of Ct she declioned to wait for CD she agrees to follow up .removed saline lock left hand noted no edema no pain cath intact cover and dry dressing .
--- NOTE | 2020-05-12 14:48 | NUR ---
RFA noted slight redness denies pain elevate and cool to site .
[2020-05-12 14:49] VITALS: BP 125/67
== END 2020-05-12 14:50 | disposition home or self-care (01) ==
LOC: ER 11:37
DX: D25.9 Leiomyoma of uterus, unspecified (principal); R10.31 Right lower quadrant pain; R10.32 Left lower quadrant pain; I10 Essential (primary) hypertension; E78.5 Hyperlipidemia, unspecified; E03.9 Hypothyroidism, unspecified; Z98.890 Other specified postprocedural states; Z88.0 Allergy status to penicillin; Z60.2 Problems related to living alone; Z79.899 Other long term (current) drug therapy
CPT/HCPCS: 36415; 74177; 76856; 80048; 80076; 81001; 83605; 83690; 84703; 85025; 96361; 96374; 99285; J1885; J2270; J7050; Q9967

== ENCOUNTER 2020-07-13 20:30 | Emergency (ER) | payer MEDICAID ==
[~2020-07-13] VITALS: Ht 172.7 cm; Wt 81.6 kg
--- NOTE | 2020-07-13 20:30 | NUR ---
BIBSELF C/O CHEST TIGHTNESS AND L HAND NUMNESS X3HR ECONOMICS FACULTY MEMBER, PT AAOX4, DENIES ANY SOB. PLACED ON MONITOR, VSS ,PENDING ER PROVIDER SHEN
[2020-07-13] MEDS ORDERED: ONDANSETRON HCL/PF 4 MG/2 ML VIAL ONE (20:58)
[2020-07-13 21:08] LABS: BASOPHILS # (AUTO) 0.1 /CMM (0.0-0.2); BASOPHILS % (AUTO) 1.1 % (0.0-2.0); EOSINOPHILS % (AUTO) 3.7 % (0.0-6.0); HEMATOCRIT 40 % (33-45); HEMOGLOBIN 12.8 g/dL (11.5-14.8); LYMPHOCYTES # (AUTO) 2.6 /CMM (0.8-4.8); MEAN CORPUSCULAR HGB CONC 32 g/dl (31.0-36.0); MEAN CORPUSCULAR VOLUME 86 fL (82-100); MONOCYTES # (AUTO) 0.8 /CMM (0.1-1.30); MONOCYTES % (AUTO) 9.5 % (2.0-12.0); NEUTROPHILS # (AUTO) 4.8 /CMM (1.8-8.9); NEUTROPHILS % (AUTO) 55.7 % (43.0-81.0); PLATELET COUNT (AUTO) 224 /CMM (150-450); RED BLOOD CELL COUNT(AUTO) 4.65 MIL/uL (4.0-5.2); WHITE BLOOD COUNT (AUTO) 8.7 K/uL (4.3-11.0)
[2020-07-13 21:23] LABS: CALCIUM, SERUM 8.6 mg/dL (8.5-10.1); CARBON DIOXIDE 23 mmol/L (21-32); CHLORIDE 106 mmol/L (98-107); GLUCOSE 108 mg/dL (74-106); SODIUM SERUM 141 mmol/L (136-145); UREA NITROGEN, BLOOD 19 mg/dL (7-18)
[2020-07-13] MEDS ORDERED: ONDANSETRON HCL/PF - ER 4 MG/2 ML VIAL IV ONE (21:30)
--- NOTE | 2020-07-13 22:05 | NUR ---
Dylon perkins in [facility] - 07/13/20 at 2205 by RED REPORT GIVEN TO [facility] PT WILL BE TRANSPORTED TO [address] [place] [address]
[2020-07-13 23:23] LABS: ALANINE AMINOTRANSFERASE 221 U/L (12-78); ALBUMIN 3.5 g/dL (3.4-5.0); ALKALINE PHOSPHATASE 106 U/L (46-116); ASPARTATE AMINOTRANSFERASE 134 U/L (15-37); BILIRUBIN,DIRECT 0.1 mg/dL (0.0-0.2); BILIRUBIN,TOTAL 0.4 mg/dL (0.2-1.0); TOTAL PROTEIN, SERUM 7.4 g/dL (6.4-8.2)
[2020-07-13 23:31] LABS: BILIRUBIN,URINE NEGATIVE (NEGATIVE); COLOR,URINE ORANGE (YELLOW); LEUKOCYTE ESTERASE ,URINE SMALL (NEGATIVE); NITRITE, URINE POSITIVE (NEGATIVE); PROTEIN,URINE >=300 mg/dl (NEGATIVE); UGLUCOSE 250 MG/DL mg/dL (NEGATIVE); UROBILINOGEN,URINE >=8.0 EU/dL (0.2)
[2020-07-13 23:32] LABS: CREATININE 1.2 mg/dL (0.6-1.3)
[2020-07-13 23:47] LABS: BACTERIA,URINE 1+ /HPF (None Seen); MUCUS,URINE Few /LPF (None Seen); SQUAMOUS EPITHELIAL CELL,UR Few /HPF (None Seen); URINE AMORPHOUS URATE Few /HPF (None Seen)
[2020-07-14 00:41] VITALS: BP 101/60
== END 2020-07-14 00:42 | disposition home or self-care (01) ==
LOC: ER 20:33
DX: R07.89 Other chest pain (principal); I10 Essential (primary) hypertension; E78.5 Hyperlipidemia, unspecified; Z85.528 Personal history of other malignant neoplasm of kidney; Z90.49 Acquired absence of other specified parts of digestive tract; Z90.5 Acquired absence of kidney; Z88.0 Allergy status to penicillin; Z60.2 Problems related to living alone; Z79.899 Other long term (current) drug therapy
CPT/HCPCS: 36415; 71045; 80048; 80076; 81001; 84484 ×2; 85025; 85378; 87086; 93005; 96374; 99285; J2405

== ENCOUNTER 2020-07-17 02:25 | Emergency (ER) | payer MEDICAID ==
[~2020-07-17] VITALS: Ht 172.7 cm; Wt 81.6 kg
--- NOTE | 2020-07-17 02:57 | NUR ---
PT AAOX4, AMBULATORY WITH STEADY GAIT. BIBSELF C/O CP RADAITING TO L ARM +HEADACHE +EPIGASTRIC PAIN X1 DAY. PT STATED SHE FEELS ANXIOUS. PLACED IN BED 6 ON DIGITAL PROOFING AND PLATEMAKER AND PULSE OX. VSS. NO ACUTE DISTRESS NOTED.
[2020-07-17] MEDS ORDERED: ONDANSETRON HCL/PF 4 MG/2 ML VIAL ONE (03:22)
[2020-07-17] MEDS ORDERED: LORAZEPAM 1 MG TABLET ONE (03:23)
[2020-07-17] MEDS ORDERED: LORAZEPAM 1 MG TABLET PO ONE (03:30)
[2020-07-17] MEDS ORDERED: ONDANSETRON HCL/PF 4 MG/2 ML VIAL IV ONE (03:30)
--- NOTE | 2020-07-17 03:38 | NUR ---
RAD AT BED SIDE
[2020-07-17 03:48] LABS: BASOPHILS # (AUTO) 0.1 /CMM (0.0-0.2); BASOPHILS % (AUTO) 1.2 % (0.0-2.0); HEMATOCRIT 40 % (33-45); HEMOGLOBIN 12.9 g/dL (11.5-14.8); LYMPHOCYTES # (AUTO) 2.1 /CMM (0.8-4.8); LYMPHOCYTES % (AUTO) 31.1 % (20.0-44.0); MEAN CORPUSCULAR HGB CONC 32 g/dl (31.0-36.0); MEAN CORPUSCULAR VOLUME 86 fL (82-100); MONOCYTES # (AUTO) 0.7 /CMM (0.1-1.30); MONOCYTES % (AUTO) 10.1 % (2.0-12.0); NEUTROPHILS # (AUTO) 3.6 /CMM (1.8-8.9); NEUTROPHILS % (AUTO) 52.6 % (43.0-81.0); PLATELET COUNT (AUTO) 189 /CMM (150-450); RED BLOOD CELL COUNT(AUTO) 4.62 MIL/uL (4.0-5.2); WHITE BLOOD COUNT (AUTO) 6.8 K/uL (4.3-11.0)
[2020-07-17 03:56] LABS: CREATININE 1.2 mg/dL (0.6-1.3); POTASSIUM 4.3 mmol/L (3.5-5.1)
--- NOTE | 2020-07-17 05:53 | NUR ---
Patient discharged to home in stable condition. Written and verbal after care instructions given. Patient verbalizes understanding of instruction. Pt denies pain. vss. Ambulated out of ED.
--- NOTE | 2020-07-17 05:53 | NUR ---
IV removed. Catheter intact and site benign. Pressure and 4x4 applied to site. No bleeding noted.
[2020-07-17 05:54] VITALS: BP 131/79
== END 2020-07-17 05:54 | disposition home or self-care (01) ==
LOC: ER 02:26
DX: F41.9 Anxiety disorder, unspecified (principal); I10 Essential (primary) hypertension; E78.5 Hyperlipidemia, unspecified; E03.9 Hypothyroidism, unspecified; Z98.890 Other specified postprocedural states; Z90.49 Acquired absence of other specified parts of digestive tract; Z88.0 Allergy status to penicillin; Z79.899 Other long term (current) drug therapy; Z60.2 Problems related to living alone
CPT/HCPCS: 36415; 71045; 80048; 84484; 85025; 93005; 96374; 99285; J2405

== ENCOUNTER 2020-08-14 14:15 | Emergency (ER) | payer MEDICAID ==
[~2020-08-14] VITALS: Ht 172.7 cm; Wt 87.5 kg
[2020-08-14 14:31] VITALS: BP 116/76
--- NOTE | 2020-08-14 14:45 | NUR ---
Patient came in to the er c/o dysuria, urgency x 5 weeks. took antibiotics w/ no relief. On room air, breathing evenly and unlabored. Connected tot he monitor and pulse ox. kept comfortable, will continue to monitor accordingly.
[2020-08-14 15:28] LABS: BILIRUBIN,URINE NEGATIVE (NEGATIVE); COLOR,URINE YELLOW (YELLOW); LEUKOCYTE ESTERASE ,URINE NEGATIVE (NEGATIVE); NITRITE, URINE NEGATIVE (NEGATIVE); PROTEIN,URINE NEGATIVE (NEGATIVE); UGLUCOSE NEGATIVE (NEGATIVE); UROBILINOGEN,URINE 0.2 EU/dL (0.2)
--- NOTE | 2020-08-14 16:27 | NUR ---
Patient discharged to home in stable condition. Written and verbal after care instructions given. Patient verbalizes understanding of instruction.
== END 2020-08-14 16:27 | disposition home or self-care (01) ==
LOC: ER 14:19
DX: R35.0 Frequency of micturition (principal); E78.5 Hyperlipidemia, unspecified; I10 Essential (primary) hypertension; Z85.528 Personal history of other malignant neoplasm of kidney; Z90.49 Acquired absence of other specified parts of digestive tract; Z90.5 Acquired absence of kidney; Z88.0 Allergy status to penicillin; Z60.2 Problems related to living alone; Z79.899 Other long term (current) drug therapy

== ENCOUNTER 2020-10-15 19:13 | Emergency (ER) | payer MEDICAID ==
[~2020-10-15] VITALS: Ht 172.7 cm; Wt 80.7 kg
--- NOTE | 2020-10-15 19:30 | NUR ---
PATIENT BIB DAUGHTER FOR "I HAVE DEFIBRILATOR PACEMAKER AND WENT OFF AN HOUR AGO C/O LEFT SHOULDER PAIN AND SOB. PATIENT IS A/O X 4 RR EVEN AND UNLABORED, NO SIGNS OF SOB NOTED. PATIENT CONNCETED TO CUSTOMER EQUIPMENT ENGINEER AND POX. WILL CONTINUE TO MONITOR. Addendum: 10/15/20 at 2015 by SAVANNAH PATIONET BIBS C/O WORSENING LEFT CHEST, THROAT, JAW ON REGLAN FOR 5 MONTHS AND GOT OFF OF IT LAST MONTH AND IN GENERAL L SIDED THIGHTNESS. PATIENT IS A/O X 4 RR EVEN AND UNLABORED, NO SIGNS OF SOB NOTED. PATIENT CONNCETED TO CUSTOMER EQUIPMENT ENGINEER AND POX. WILL CONTINUE TO MONITOR.
[2020-10-15 20:12] LABS: BASOPHILS # (AUTO) 0.1 K/uL (0.0-0.2); BASOPHILS % (AUTO) 0.9 % (0.0-2.0); EOSINOPHILS % (AUTO) 6.1 % (0.0-6.0); HEMATOCRIT 44 % (33-45); HEMOGLOBIN 14.2 g/dL (11.5-14.8); LYMPHOCYTES # (AUTO) 2.2 K/uL (0.8-4.8); LYMPHOCYTES % (AUTO) 30.1 % (20.0-44.0); MEAN CORPUSCULAR HGB CONC 33 g/dl (31.0-36.0); MEAN CORPUSCULAR VOLUME 88 fL (82-100); MONOCYTES # (AUTO) 0.8 K/uL (0.1-1.30); MONOCYTES % (AUTO) 10.4 % (2.0-12.0); NEUTROPHILS # (AUTO) 3.8 K/uL (1.8-8.9); NEUTROPHILS % (AUTO) 52.5 % (43.0-81.0); PLATELET COUNT (AUTO) 215 K/uL (150-450); RED BLOOD CELL COUNT(AUTO) 4.96 MIL/uL (4.0-5.2); WHITE BLOOD COUNT (AUTO) 7.3 K/uL (4.3-11.0)
[2020-10-15 20:20] LABS: CALCIUM, SERUM 9.2 mg/dL (8.5-10.1); CARBON DIOXIDE 25 mmol/L (21-32); CHLORIDE 104 mmol/L (98-107); GLUCOSE 92 mg/dL (74-106); POTASSIUM 4.9 mmol/L (3.5-5.1); SODIUM SERUM 139 mmol/L (136-145); UREA NITROGEN, BLOOD 20 mg/dL (7-18)
--- NOTE | 2020-10-15 20:20 | NUR ---
RAD AT BEDSIDE
[2020-10-15] MEDS ORDERED: CYCLOBENZAPRINE 10 MG TABLET ONE (21:21)
[2020-10-15] MEDS ORDERED: HALOPERIDOL LACTATE INJ 5 MG/ML VIAL ONE (21:21)
[2020-10-15] MEDS ORDERED: KETOROLAC TROMETHAMINE INJ 30 MG/ML VIAL ONE (21:21)
[2020-10-15] MEDS ORDERED: CYCLOBENZAPRINE 10 MG TABLET PO ONE (21:30)
[2020-10-15] MEDS ORDERED: KETOROLAC TROMETHAMINE INJ 30 MG/ML VIAL IM ONE (21:30)
[2020-10-15] MEDS ORDERED: HALOPERIDOL LACTATE INJ 5 MG/ML VIAL IM ONE (21:30)
[2020-10-15] MEDS ORDERED: HALO2TAB PO (22:21)
[2020-10-15] MEDS ORDERED: CYCL5TAB PO (22:21)
[2020-10-15 22:31] VITALS: BP 134/75
--- NOTE | 2020-10-15 22:32 | NUR ---
Patient discharged to home in stable condition. RX and Written and verbal after care instructions given. Patient verbalizes understanding of instruction.
== END 2020-10-15 22:32 | disposition home or self-care (01) ==
LOC: ER 19:16
DX: F45.0 Somatization disorder (principal); I10 Essential (primary) hypertension; E78.5 Hyperlipidemia, unspecified; E03.9 Hypothyroidism, unspecified; M32.9 Systemic lupus erythematosus, unspecified; M79.7 Fibromyalgia; Z90.5 Acquired absence of kidney; Z90.49 Acquired absence of other specified parts of digestive tract; Z98.890 Other specified postprocedural states; Z88.0 Allergy status to penicillin; Z60.2 Problems related to living alone; Z79.899 Other long term (current) drug therapy
CPT/HCPCS: 36415; 71045; 80048; 84484; 85025; 93005 ×2; 96372 ×2; 99285; J1630; J1885

== ENCOUNTER 2020-11-20 15:27 | Emergency (ER) | payer MEDICAID ==
[~2020-11-20] VITALS: Ht 172.7 cm; Wt 83.0 kg
[~2020-11-20 15:27] MED LIST changes: +CYCL5TAB PO; +HALO2TAB PO
[2020-11-20] MEDS ORDERED: ONDANSETRON HCL/PF 4 MG/2 ML VIAL IVP ONE (16:00)
[2020-11-20] MEDS ORDERED: MORPHINE SULFATE INJ 2 MG/ML DISP.SYRIN IV ONE (16:00)
[2020-11-20] MEDS ORDERED: IV NS 0.9% 1,000 ML BAG IV ONE (16:00)
[2020-11-20] MEDS ORDERED: MORPHINE SULFATE INJ 4 MG/ML DISP.SYRIN ONE (16:07)
[2020-11-20] MEDS ORDERED: ONDANSETRON HCL/PF 4 MG/2 ML VIAL ONE (16:07)
[2020-11-20 16:24] LABS: BASOPHILS # (AUTO) 0.1 K/uL (0.0-0.2); BASOPHILS % (AUTO) 0.9 % (0.0-2.0); EOSINOPHILS % (AUTO) 3.5 % (0.0-6.0); HEMATOCRIT 43 % (33-45); HEMOGLOBIN 14.1 g/dL (11.5-14.8); LYMPHOCYTES # (AUTO) 2.2 K/uL (0.8-4.8); LYMPHOCYTES % (AUTO) 26.2 % (20.0-44.0); MEAN CORPUSCULAR HGB CONC 33 g/dl (31.0-36.0); MEAN CORPUSCULAR VOLUME 87 fL (82-100); MONOCYTES # (AUTO) 0.7 K/uL (0.1-1.30); MONOCYTES % (AUTO) 8.8 % (2.0-12.0); NEUTROPHILS % (AUTO) 60.6 % (43.0-81.0); PLATELET COUNT (AUTO) 227 K/uL (150-450); RED BLOOD CELL COUNT(AUTO) 4.93 MIL/uL (4.0-5.2); WHITE BLOOD COUNT (AUTO) 8.3 K/uL (4.3-11.0)
[2020-11-20 16:31] LABS: CALCIUM, SERUM 9.5 mg/dL (8.5-10.1); POTASSIUM 3.9 mmol/L (3.5-5.1)
[2020-11-20 16:35] LABS: CREATININE 1.1 mg/dL (0.6-1.3)
--- NOTE | 2020-11-20 16:36 | NUR ---
BIBS FROM HOME TO ER BED 6. AAOX4. NOT IN RESP DISTRESS, BREATHING EVEN AND UNLABORED. AMBULATORY. CAME IN FOR FEELING SICK SINCE WEDNESDAY. PT REPORTS THAT SHE HAS SORETHROAT, COUGH, NAUSEA, DIARRHEA AND LEFT LOWER BACK PAIN. PT IS AFEBRILE. PROVIDER WAS AT THE BEDSIDE FOR EVAL. ORDERS RECEIVED, NOTED AND CARRIED OUT. IV LINE ESTABLISHED ON L HAND 20G, BLOOD DRAWN AND GIVEN TO PHLEB. COVID AND STREP SWAB DONE. PT UNABLE TO URINATE AT THIS TIME, FLUIDS RUNNING.
[2020-11-20 17:00] LABS: BILIRUBIN,URINE Negative (NEGATIVE); COLOR,URINE YELLOW (YELLOW); LEUKOCYTE ESTERASE ,URINE Negative (NEGATIVE); NITRITE, URINE Negative (NEGATIVE); PH,URINE 5.5 (5.0-8.0); PROTEIN,URINE Negative (NEGATIVE); UGLUCOSE Negative (NEGATIVE); UROBILINOGEN,URINE 0.2 EU/dL (0.2)
[2020-11-20] MEDS ORDERED: ACET-2605 PO (17:18)
[2020-11-20 17:38] VITALS: BP 113/72
== END 2020-11-20 17:38 | disposition home or self-care (01) ==
LOC: ER 15:35
DX: B34.9 Viral infection, unspecified (principal); Z20.822 Contact with and (suspected) exposure to COVID-19; M79.7 Fibromyalgia; E78.5 Hyperlipidemia, unspecified; I10 Essential (primary) hypertension; K58.9 Irritable bowel syndrome, unspecified; Z90.49 Acquired absence of other specified parts of digestive tract; Z90.5 Acquired absence of kidney; Z90.710 Acquired absence of both cervix and uterus; Z86.16 Personal history of COVID-19; E03.9 Hypothyroidism, unspecified; Z85.528 Personal history of other malignant neoplasm of kidney; M32.9 Systemic lupus erythematosus, unspecified
CPT/HCPCS: 36415; 71045; 80048; 81003; 85025; 87070; 87426; 87880; 96361; 96374; 96375; 99284; C9803; J2270; J2405; J7030; 86403-TC

== ENCOUNTER 2021-03-05 11:22 | Emergency (ER) | payer MEDICAID ==
[~2021-03-05] VITALS: Ht 172.7 cm; Wt 90.0 kg
[~2021-03-05 11:22] MED LIST changes: +ACET-2605 PO
--- NOTE | 2021-03-05 11:31 | NUR ---
BIBS FOR C/O LOWER ABD PAIN 10/10 WHICH GETS WORST WITH FOOD INTAKE C/O NAUSEA AFTER EATING, FEELING OF NEED TO HAVE BM. ABDOMEN SOFT AND NON-DISTENDED. DENIES V/D OR CONSTIPATION. RESPIRATION REGULAR AND UNLABORED. WILL CONTINUE TO MONITOR THE PATIENT.
[2021-03-05] MEDS ORDERED: MORPHINE SULFATE INJ 4 MG/ML DISP.SYRIN ONE (12:24)
[2021-03-05] MEDS ORDERED: ONDANSETRON HCL/PF 4 MG/2 ML VIAL ONE (12:24)
[2021-03-05] MEDS ORDERED: DICYCLOMINE HCL INJ 20 MG/2 ML AMPUL IM ONE ×2 (12:24→12:30)
[2021-03-05] MEDS ORDERED: MORPHINE SULFATE INJ 2 MG/ML DISP.SYRIN IV ONE (12:30)
[2021-03-05] MEDS ORDERED: ONDANSETRON HCL/PF 4 MG/2 ML VIAL IVP ONE (12:30)
[2021-03-05] MEDS ORDERED: IV NS 0.9% 1,000 ML BAG IV ONE (12:30)
[2021-03-05 12:54] LABS: BILIRUBIN,URINE SMALL (NEGATIVE); COLOR,URINE YELLOW (YELLOW); LEUKOCYTE ESTERASE ,URINE Negative (NEGATIVE); NITRITE, URINE Negative (NEGATIVE); PROTEIN,URINE Negative (NEGATIVE); UGLUCOSE Negative (NEGATIVE); UROBILINOGEN,URINE 0.2 EU/dL (0.2)
[2021-03-05 13:06] LABS: RBC,URINE 0-2 /HPF (0-2); WBC,URINE 0-2 /HPF (0-3)
[2021-03-05 13:07] LABS: BACTERIA,URINE Few /HPF (None Seen); SQUAMOUS EPITHELIAL CELL,UR Few /HPF (None Seen)
[2021-03-05 13:09] LABS: BASOPHILS # (AUTO) 0.1 K/uL (0.0-0.2); BASOPHILS % (AUTO) 0.7 % (0.0-2.0); HEMATOCRIT 44 % (33-45); HEMOGLOBIN 14.4 g/dL (11.5-14.8); LYMPHOCYTES # (AUTO) 2.1 K/uL (0.8-4.8); MEAN CORPUSCULAR HGB CONC 33 g/dl (31.0-36.0); MEAN CORPUSCULAR VOLUME 88 fL (82-100); MONOCYTES # (AUTO) 0.9 K/uL (0.1-1.30); MONOCYTES % (AUTO) 9.2 % (2.0-12.0); NEUTROPHILS % (AUTO) 68.1 % (43.0-81.0); PLATELET COUNT (AUTO) 186 K/uL (150-450); RED BLOOD CELL COUNT(AUTO) 5.02 MIL/uL (4.0-5.2); WHITE BLOOD COUNT (AUTO) 10.3 K/uL (4.3-11.0)
[2021-03-05 13:17] LABS: CALCIUM, SERUM 9.3 mg/dL (8.5-10.1); CREATININE 1.2 mg/dL (0.6-1.3); POTASSIUM 4.2 mmol/L (3.5-5.1)
[2021-03-05 13:31] LABS: ALBUMIN 3.7 g/dL (3.4-5.0); BILIRUBIN,DIRECT 0.1 mg/dL (0.0-0.2); BILIRUBIN,TOTAL 0.3 mg/dL (0.2-1.0); TOTAL PROTEIN, SERUM 7.7 g/dL (6.4-8.2)
--- NOTE | 2021-03-05 14:15 | NUR ---
The patient is alert and oriented x4. Respiration resgular and unlabored. Denies pain. IV removed. Catheter intact and site benign. Pressure and 4x4 applied to site. No bleeding noted.Patient discharged to home in stable condition. Written and verbal after care instructions given. Patient verbalizes understanding of instruction.
[2021-03-05 14:16] VITALS: BP 113/67
== END 2021-03-05 14:16 | disposition home or self-care (01) ==
LOC: ER 11:23
DX: R10.30 Lower abdominal pain, unspecified (principal); I10 Essential (primary) hypertension; E78.5 Hyperlipidemia, unspecified; M79.7 Fibromyalgia; E03.9 Hypothyroidism, unspecified; M32.9 Systemic lupus erythematosus, unspecified; Z90.49 Acquired absence of other specified parts of digestive tract; Z98.890 Other specified postprocedural states; Z88.0 Allergy status to penicillin; Z60.2 Problems related to living alone; Z79.899 Other long term (current) drug therapy
CPT/HCPCS: 36415; 71045; 80048; 80076; 81001; 83605; 83690; 85025; 93005; 96361; 96372; 96374; 96375; 99285; J0500; J2270; J2405; J7030

== ENCOUNTER 2021-03-16 10:08 | Emergency (ER) | payer OTHER ==
[~2021-03-16] VITALS: Ht 167.6 cm; Wt 83.9 kg
--- NOTE | 2021-03-16 10:27 | NUR ---
BIBS FOR SWELLING R SIDE OF THE FACE. C/O PAIN 4/10 UPON TOUCH X1 WEEK. COUGH WITH PHLEGM IN MORNINGS. DENIES CHILLS/FEVER. IN ROOM AIR AND DENIES SOB. RESPIRATION REGULAR AND UNLABORED. WILL CONTINUE TO MONITOR THE PATIENT.
--- NOTE | 2021-03-16 11:02 | NUR ---
BACK FROM CT
[2021-03-16 11:33] LABS: HEMOGLOBIN 14.1 g/dL (11.5-14.8)
[2021-03-16 11:37] LABS: BASOPHILS # (AUTO) 0.1 K/uL (0.0-0.2); BASOPHILS % (AUTO) 0.9 % (0.0-2.0); EOSINOPHILS % (AUTO) 3.6 % (0.0-6.0); HEMATOCRIT 43 % (33-45); LYMPHOCYTES # (AUTO) 2.2 K/uL (0.8-4.8); LYMPHOCYTES % (AUTO) 27.6 % (20.0-44.0); MEAN CORPUSCULAR HGB CONC 33 g/dl (31.0-36.0); MEAN CORPUSCULAR VOLUME 88 fL (82-100); MONOCYTES # (AUTO) 0.8 K/uL (0.1-1.30); MONOCYTES % (AUTO) 9.8 % (2.0-12.0); NEUTROPHILS # (AUTO) 4.5 K/uL (1.8-8.9); NEUTROPHILS % (AUTO) 58.1 % (43.0-81.0); RED BLOOD CELL COUNT(AUTO) 4.87 MIL/uL (4.0-5.2); WHITE BLOOD COUNT (AUTO) 7.8 K/uL (4.3-11.0)
[2021-03-16 11:50] LABS: PLATELET COUNT (AUTO) 100 K/uL (150-450)
--- NOTE | 2021-03-16 12:18 | NUR ---
CLUB LICENSEE AT PT'S BEDSIDE
[2021-03-16 12:30] LABS: CALCIUM, SERUM 8.6 mg/dL (8.5-10.1); POTASSIUM 4.5 mmol/L (3.5-5.1)
[2021-03-16] MEDS ORDERED: ACET325C7 PO (13:01)
--- NOTE | 2021-03-16 13:13 | NUR ---
Patient discharged to home in stable condition. Written and verbal after care instructions given. Patient verbalizes understanding of instruction.
[2021-03-16 13:14] VITALS: BP 120/67
== END 2021-03-16 13:14 | disposition home or self-care (01) ==
LOC: ER 10:12
DX: K11.20 Sialoadenitis, unspecified (principal); R59.0 Localized enlarged lymph nodes; I10 Essential (primary) hypertension; E78.5 Hyperlipidemia, unspecified; M79.7 Fibromyalgia; G40.909 Epilepsy, unspecified, not intractable, without status epilepticus; Z90.49 Acquired absence of other specified parts of digestive tract; Z98.890 Other specified postprocedural states; Z90.5 Acquired absence of kidney; Z88.0 Allergy status to penicillin; Z60.2 Problems related to living alone; Z79.899 Other long term (current) drug therapy
CPT/HCPCS: 36415; 70486-TC; 80048-TC; 85025-TC

== ENCOUNTER 2021-03-22 11:01 | Emergency (ER) | payer OTHER ==
[~2021-03-22] VITALS: Ht 172.7 cm; Wt 83.9 kg
[~2021-03-22 11:01] MED LIST changes: +ACET325C7 PO
--- NOTE | 2021-03-22 11:07 | NUR ---
To ER bed 10, c/o chest pressure 2 hrs AUTHORIZER that radiates to the neck, took ativan 0.5mg, aaox3, breathing even and non labored, connected to monitor
[2021-03-22 11:33] LABS: BASOPHILS # (AUTO) 0.1 K/uL (0.0-0.2); BASOPHILS % (AUTO) 1.2 % (0.0-2.0); EOSINOPHILS % (AUTO) 4.8 % (0.0-6.0); HEMATOCRIT 42 % (33-45); MONOCYTES # (AUTO) 0.7 K/uL (0.1-1.30)
[2021-03-22 11:47] LABS: CALCIUM, SERUM 8.6 mg/dL (8.5-10.1); CARBON DIOXIDE 26 mmol/L (21-32); CHLORIDE 105 mmol/L (98-107); CREATININE 1.2 mg/dL (0.6-1.3); GLUCOSE 92 mg/dL (74-106); POTASSIUM 4.8 mmol/L (3.5-5.1); SODIUM SERUM 138 mmol/L (136-145); UREA NITROGEN, BLOOD 23 mg/dL (7-18)
[2021-03-22] MEDS ORDERED: ASPIRIN 325 MG TABLET PO ONE (12:00)
[2021-03-22] MEDS ORDERED: ASPIRIN 325 MG TABLET ONE (12:00)
[2021-03-22 12:06] LABS: LYMPHOCYTES # (AUTO) 2.1 K/uL (0.8-4.8); LYMPHOCYTES % (AUTO) 32.9 % (20.0-44.0); MEAN CORPUSCULAR HGB CONC 33 g/dl (31.0-36.0); MEAN CORPUSCULAR VOLUME 88 fL (82-100); MONOCYTES % (AUTO) 11.4 % (2.0-12.0); NEUTROPHILS # (AUTO) 3.2 K/uL (1.8-8.9); NEUTROPHILS % (AUTO) 49.7 % (43.0-81.0); PLATELET COUNT (AUTO) 189 K/uL (150-450); RED BLOOD CELL COUNT(AUTO) 4.77 MIL/uL (4.0-5.2); WHITE BLOOD COUNT (AUTO) 6.4 K/uL (4.3-11.0)
--- NOTE | 2021-03-22 14:08 | NUR ---
PATIENT WAS PROVIDED SNACKS
--- NOTE | 2021-03-22 14:50 | NUR ---
IV removed. Catheter intact and site benign. Pressure and 4x4 applied to site. No bleeding noted.Patient discharged to home in stable condition. Written and verbal after care instructions given. Patient verbalizes understanding of instruction.
[2021-03-22 15:00] VITALS: BP 134/79
[2021-03-22] MEDS ORDERED: FAMO-131 PO (22:53)
== END 2021-03-22 16:17 | disposition left against medical advice (07) ==
LOC: ER 11:04
DX: R07.89 Other chest pain (principal); G40.909 Epilepsy, unspecified, not intractable, without status epilepticus; M79.7 Fibromyalgia; E78.5 Hyperlipidemia, unspecified; F41.9 Anxiety disorder, unspecified; I10 Essential (primary) hypertension; M32.9 Systemic lupus erythematosus, unspecified; Z98.890 Other specified postprocedural states; Z90.49 Acquired absence of other specified parts of digestive tract; Z88.0 Allergy status to penicillin; Z60.2 Problems related to living alone; Z79.899 Other long term (current) drug therapy
CPT/HCPCS: 36415; 71045-TC; 80048-TC; 84484-TC; 85025-TC

== ENCOUNTER 2021-03-22 19:46 | Emergency (ER) | payer OTHER ==
[~2021-03-22] VITALS: Ht 172.7 cm; Wt 83.9 kg
[2021-03-22 20:26] VITALS: BP 112/78
--- NOTE | 2021-03-22 20:26 | NUR ---
BIBS FOR BURNING SENSATION IN HER THROAT TOWARD MID CHEST. PT WAS SEEN AT [facility] ER EARLIER, AND LEFT AMA AFTER CARDIAC WORK UP
[2021-03-22] MEDS ORDERED: LIDOCAINE VISCOUS 2% UD 15 ML UDC MM ONE (21:00)
[2021-03-22] MEDS ORDERED: FAMOTIDINE (20 MG) 20 MG TABLET PO ONE (21:00)
[2021-03-22] MEDS ORDERED: MAG HYDROX/AL HYDROX/SIMETH 30 ML UDC PO ONE (21:00)
[2021-03-22] MEDS ORDERED: FAMOTIDINE (20 MG) 20 MG TABLET ONE (21:04)
[2021-03-22] MEDS ORDERED: LIDOCAINE VISCOUS 2% UD 15 ML UDC ONE (21:04)
[2021-03-22] MEDS ORDERED: MAG HYDROX/AL HYDROX/SIMETH 30 ML UDC ONE (21:04)
[2021-03-22 21:25] LABS: BASOPHILS # (AUTO) 0.1 K/uL (0.0-0.2); BASOPHILS % (AUTO) 1.2 % (0.0-2.0); EOSINOPHILS % (AUTO) 4.7 % (0.0-6.0); HEMATOCRIT 41 % (33-45); HEMOGLOBIN 13.6 g/dL (11.5-14.8); LYMPHOCYTES # (AUTO) 2.8 K/uL (0.8-4.8); MEAN CORPUSCULAR HGB CONC 33 g/dl (31.0-36.0); MEAN CORPUSCULAR VOLUME 89 fL (82-100); MONOCYTES # (AUTO) 0.8 K/uL (0.1-1.30); MONOCYTES % (AUTO) 9.8 % (2.0-12.0); NEUTROPHILS % (AUTO) 49.3 % (43.0-81.0); PLATELET COUNT (AUTO) 180 K/uL (150-450); RED BLOOD CELL COUNT(AUTO) 4.59 MIL/uL (4.0-5.2); WHITE BLOOD COUNT (AUTO) 8.1 K/uL (4.3-11.0)
[2021-03-22 21:43] LABS: ALANINE AMINOTRANSFERASE 31 U/L (12-78); ALBUMIN 3.4 g/dL (3.4-5.0); ALKALINE PHOSPHATASE 68 U/L (46-116); ASPARTATE AMINOTRANSFERASE 20 U/L (15-37); BILIRUBIN,DIRECT 0.1 mg/dL (0.0-0.2); BILIRUBIN,TOTAL 0.3 mg/dL (0.2-1.0); CALCIUM, SERUM 8.7 mg/dL (8.5-10.1); CARBON DIOXIDE 26 mmol/L (21-32); CHLORIDE 107 mmol/L (98-107); CREATININE 1.3 mg/dL (0.6-1.3); GLUCOSE 139 mg/dL (74-106); LIPASE 142 U/L (73-393); SODIUM SERUM 142 mmol/L (136-145); TOTAL PROTEIN, SERUM 7.3 g/dL (6.4-8.2); UREA NITROGEN, BLOOD 28 mg/dL (7-18)
--- NOTE | 2021-03-22 22:50 | NUR ---
Patient discharged to home in stable condition. Written and verbal after care instructions given. Patient verbalizes understanding of instruction.
[2021-03-22] MEDS ORDERED: FAMO-131 PO (22:53)
--- NOTE | 2021-03-22 23:05 | NUR ---
Patient discharged to home in stable condition. Rx and Written and verbal after care instructions given. Patient verbalizes understanding of instruction.
== END 2021-03-23 05:03 | disposition home or self-care (01) ==
LOC: ER 19:46
DX: R10.13 Epigastric pain (principal); R07.89 Other chest pain; I10 Essential (primary) hypertension; E78.5 Hyperlipidemia, unspecified; M79.7 Fibromyalgia; F41.9 Anxiety disorder, unspecified; E03.9 Hypothyroidism, unspecified; Z90.49 Acquired absence of other specified parts of digestive tract; Z98.890 Other specified postprocedural states; Z88.0 Allergy status to penicillin; Z60.2 Problems related to living alone; Z79.899 Other long term (current) drug therapy
CPT/HCPCS: 36415; 80048-TC; 80076-TC; 83690-TC; 84484-TC; 85025-TC

== ENCOUNTER → 2021-03-27 | Emergency (ER) | payer OTHER, MEDICAID ==
[~2021-03-27] VITALS: Ht 170.2 cm; Wt 83.9 kg
[~2021-03-27] MED LIST changes: +FAMO-131 PO
--- NOTE | 2021-03-27 14:53 | NUR ---
BIBSELF C/O RIGHT LOWER EXTREMITY PAIN 5 30MIN SENIOR GEOLOGIST, "I WAS JUST WATCHING TV AND I FELT PAIN IN MY CALF". PT VITALS WITHIN NORMAL LIMITS. BREATHING IS REGULAR AND UNLABORED.
--- NOTE | 2021-03-27 16:58 | NUR ---
ULTRASOUND AT BEDSIDE
[2021-03-27 18:19] VITALS: BP 119/74
--- NOTE | 2021-03-27 18:19 | NUR ---
Patient discharged to home in stable condition. Written and verbal after care instructions given. Patient verbalizes understanding of instruction.
== END | disposition home or self-care (01) ==
LOC: ER 15:03
DX: M79.605 Pain in left leg (principal); M79.604 Pain in right leg; Z88.0 Allergy status to penicillin; Z79.899 Other long term (current) drug therapy
CPT/HCPCS: 93971-TC

== ENCOUNTER 2021-07-26 13:34 | Emergency (ER) | payer OTHER ==
[~2021-07-26] VITALS: Ht 172.7 cm; Wt 79.4 kg
--- NOTE | 2021-07-26 13:55 | NUR ---
CAME IN FOR DYSURIA x 1 WEEK. ON ORAL CIPROFLOXACIN 500MG Q12HRS x 6 DAYS FOR UTI. TO ER BED 9, HOOKED TO MONITOR, VSS, CHANGED TO HOSP GOWN, WARM BLANKET PROVIDED. AWAITING MD GOTTI
--- NOTE | 2021-07-26 14:00 | NUR ---
URINE SAMPLE COLLECTED AND SENT TO LAB
--- NOTE | 2021-07-26 14:12 | NUR ---
DR MAIER AT BEDSIDE
[2021-07-26] MEDS ORDERED: ONDANSETRON HCL/PF 4 MG/2 ML VIAL IVP ONE (14:30)
[2021-07-26] MEDS ORDERED: LEVOFLOXACIN 750 MG /D5W 150ML 150 ML IV ONE ×2 (14:30→15:04)
[2021-07-26] MEDS ORDERED: MORPHINE SULFATE INJ 2 MG/ML DISP.SYRIN IV ONE ×2 (14:30→16:30)
[2021-07-26] MEDS ORDERED: IV NS 0.9% 1,000 ML BAG IV ONE (14:30)
[2021-07-26] MEDS ORDERED: MORPHINE SULFATE INJ 4 MG/ML DISP.SYRIN ONE ×2 (15:04→16:38)
[2021-07-26] MEDS ORDERED: ONDANSETRON HCL/PF 4 MG/2 ML VIAL ONE ×2 (15:04→16:38)
[2021-07-26 15:32] LABS: BILIRUBIN,URINE NEGATIVE (NEGATIVE); COLOR,URINE YELLOW (YELLOW); LEUKOCYTE ESTERASE ,URINE MODERATE (NEGATIVE); NITRITE, URINE NEGATIVE (NEGATIVE); PROTEIN,URINE NEGATIVE (NEGATIVE); UGLUCOSE NEGATIVE (NEGATIVE)
[2021-07-26 15:39] LABS: BASOPHILS % (AUTO) 0.7 % (0.0-2.0); EOSINOPHILS % (AUTO) 3.1 % (0.0-6.0); HEMATOCRIT 42 % (33-45); HEMOGLOBIN 13.6 g/dL (11.5-14.8); LYMPHOCYTES # (AUTO) 2.2 K/uL (0.8-4.8); LYMPHOCYTES % (AUTO) 34.1 % (20.0-44.0); MEAN CORPUSCULAR HGB CONC 33 g/dl (31.0-36.0); MEAN CORPUSCULAR VOLUME 88 fL (82-100); MONOCYTES # (AUTO) 0.6 K/uL (0.1-1.30); MONOCYTES % (AUTO) 8.6 % (2.0-12.0); NEUTROPHILS # (AUTO) 3.5 K/uL (1.8-8.9); NEUTROPHILS % (AUTO) 53.5 % (43.0-81.0); PLATELET COUNT (AUTO) 181 K/uL (150-450); RED BLOOD CELL COUNT(AUTO) 4.74 MIL/uL (4.0-5.2); WHITE BLOOD COUNT (AUTO) 6.5 K/uL (4.3-11.0)
[2021-07-26 15:39] LABS: BACTERIA,URINE 3+ /HPF (None Seen); RBC,URINE 0-2 /HPF (0-2); SQUAMOUS EPITHELIAL CELL,UR 0-2 /HPF (None Seen); WBC,URINE 21-50 /HPF (0-3)
--- NOTE | 2021-07-26 16:28 | NUR ---
PATIENT COMPLAINS OF ABDOMINAL PAIN AND NAUSEA. MADE DR MAIER AWARE.
[2021-07-26] MEDS ORDERED: ONDANSETRON HCL/PF 4 MG/2 ML VIAL IV ONE (16:30)
[2021-07-26 17:17] LABS: ALBUMIN 3.7 g/dL (3.4-5.0); BILIRUBIN,DIRECT 0.1 mg/dL (0.0-0.2); BILIRUBIN,TOTAL 0.4 mg/dL (0.2-1.0); CALCIUM, SERUM 8.9 mg/dL (8.5-10.1); CREATININE 1.2 mg/dL (0.6-1.3); POTASSIUM 4.4 mmol/L (3.5-5.1); TOTAL PROTEIN, SERUM 7.5 g/dL (6.4-8.2)
[2021-07-26] MEDS ORDERED: NITR100C6 PO (17:18)
[2021-07-26 17:26] VITALS: BP 119/60
== END 2021-07-26 17:26 | disposition home or self-care (01) ==
LOC: ER 13:44
DX: N39.0 Urinary tract infection, site not specified (principal); M79.7 Fibromyalgia; I10 Essential (primary) hypertension; E78.5 Hyperlipidemia, unspecified; F41.9 Anxiety disorder, unspecified; E03.9 Hypothyroidism, unspecified; Z87.19 Personal history of other diseases of the digestive system; Z87.42 Personal history of other diseases of the female genital tract; Z85.528 Personal history of other malignant neoplasm of kidney; Z90.89 Acquired absence of other organs; Z90.710 Acquired absence of both cervix and uterus; Z88.0 Allergy status to penicillin; Z60.2 Problems related to living alone; Z79.1 Long term (current) use of non-steroidal anti-inflammatories (NSAID); Z79.899 Other long term (current) drug therapy
CPT/HCPCS: 36415; 80048; 80076; 81001; 83605; 84145; 85025; 87040 ×2; 87077; 87086; 87186; 96365; 96375; 96376; 99284; J1956; J2270 ×2; J2405 ×2; J7030

== ENCOUNTER 2021-08-29 06:31 | Emergency (ER) | payer OTHER ==
[~2021-08-29] VITALS: Ht 172.7 cm; Wt 79.4 kg
[~2021-08-29 06:31] MED LIST changes: +NITR100C6 PO
--- NOTE | 2021-08-29 06:45 | NUR ---
BIBSELF C/O COUGH WITH CONGESTION, COUGHING YELLOW SPUTUM FEELING SICK SINCE MOTHERS DAYS. PATIENT ALERT AND ORIENTED X3. AMBULATORY WITH NON LABORED BREATHING IN BED 06 WAITING FOR MD GOTTI.
--- NOTE | 2021-08-29 06:50 | NUR ---
AND PA AT BEDSIDE
--- NOTE | 2021-08-29 07:00 | NUR ---
XRAY AT BEDSIDE
--- NOTE | 2021-08-29 07:09 | NUR ---
URINE COLLECTED AND SENT TO LAB
--- NOTE | 2021-08-29 07:09 | NUR ---
COVID SWAB DONE AND SENT TO LAB
--- NOTE | 2021-08-29 07:12 | NUR ---
COVID PCR DONE AND SENT TO LAB
[2021-08-29] MEDS ORDERED: AZIT250T13 PO (08:43)
[2021-08-29 08:46] VITALS: BP 124/65
[2021-08-29 08:50] LABS: BILIRUBIN,URINE NEGATIVE (NEGATIVE); COLOR,URINE YELLOW (YELLOW); LEUKOCYTE ESTERASE ,URINE TRACE (NEGATIVE); NITRITE, URINE NEGATIVE (NEGATIVE); PROTEIN,URINE NEGATIVE (NEGATIVE); UGLUCOSE NEGATIVE (NEGATIVE)
--- NOTE | 2021-08-29 08:51 | NUR ---
Patient discharged to home in stable condition. Written and verbal after care instructions given. Patient verbalizes understanding of instruction.
[2021-08-29 08:55] LABS: BACTERIA,URINE None seen /HPF (None Seen); RBC,URINE 0-2 /HPF (0-2); SQUAMOUS EPITHELIAL CELL,UR Few /HPF (None Seen); WBC,URINE 0-2 /HPF (0-3)
== END 2021-08-29 08:46 | disposition home or self-care (01) ==
LOC: ER 06:39
DX: J44.0 Chronic obstructive pulmonary disease with (acute) lower respiratory infection (principal); J20.9 Acute bronchitis, unspecified; Z20.822 Contact with and (suspected) exposure to COVID-19; Z86.16 Personal history of COVID-19; Z88.0 Allergy status to penicillin; Z90.49 Acquired absence of other specified parts of digestive tract; Z90.5 Acquired absence of kidney; Z85.528 Personal history of other malignant neoplasm of kidney; I10 Essential (primary) hypertension; E03.9 Hypothyroidism, unspecified; G40.909 Epilepsy, unspecified, not intractable, without status epilepticus; K58.9 Irritable bowel syndrome, unspecified; M32.9 Systemic lupus erythematosus, unspecified; Z79.899 Other long term (current) drug therapy
CPT/HCPCS: 71045; 81001; 87426; 99284; C9803 ×2; U0003

== ENCOUNTER 2021-09-19 09:09 | Emergency (ER) | payer OTHER ==
[~2021-09-19] VITALS: Ht 172.7 cm; Wt 76.2 kg
[~2021-09-19 09:09] MED LIST changes: +AZIT250T13 PO
--- NOTE | 2021-09-19 09:37 | NUR ---
BIBS C/O EYES AND NOSE BURNING SENSATION AND CHEST DISCOMFORT S/P MOLD EXPOSURE IN HER APARTMENT [id number] WORST IN THE PAST 7DAYS. AMBULATORY, PLACE ON BED, AAOX4. SEEN AND EXAMINED BY DR HAM
--- NOTE | 2021-09-19 10:30 | NUR ---
Patient discharged to home in stable condition. Written and verbal after care instructions given. Patient verbalizes understanding of instruction.
[2021-09-19 10:34] VITALS: BP 125/72
== END 2021-09-19 10:30 | disposition home or self-care (01) ==
LOC: ER 09:17
DX: F41.9 Anxiety disorder, unspecified (principal); R07.89 Other chest pain; R06.02 Shortness of breath; M79.7 Fibromyalgia; G40.909 Epilepsy, unspecified, not intractable, without status epilepticus; I10 Essential (primary) hypertension; E78.5 Hyperlipidemia, unspecified; E03.9 Hypothyroidism, unspecified; M32.9 Systemic lupus erythematosus, unspecified; Z90.49 Acquired absence of other specified parts of digestive tract; Z98.890 Other specified postprocedural states; Z88.0 Allergy status to penicillin; Z60.2 Problems related to living alone; Z79.899 Other long term (current) drug therapy

== ENCOUNTER 2021-12-15 11:38 | Emergency (ER) | payer OTHER ==
[~2021-12-15] VITALS: Ht 172.7 cm; Wt 79.4 kg
[2021-12-15 13:08] LABS: BILIRUBIN,URINE NEGATIVE (NEGATIVE); COLOR,URINE YELLOW (YELLOW); LEUKOCYTE ESTERASE ,URINE NEGATIVE (NEGATIVE); NITRITE, URINE NEGATIVE (NEGATIVE); PROTEIN,URINE NEGATIVE (NEGATIVE); UGLUCOSE NEGATIVE (NEGATIVE)
[2021-12-15 13:18] LABS: BACTERIA,URINE Rare /HPF (None Seen); SQUAMOUS EPITHELIAL CELL,UR Few /HPF (None Seen); WBC,URINE 0-2 /HPF (0-3)
[2021-12-15] MEDS ORDERED: CIPR500T5 PO (13:27)
[2021-12-15 13:31] VITALS: BP 115/58
== END 2021-12-15 13:32 | disposition home or self-care (01) ==
LOC: ER 11:50
DX: R30.0 Dysuria (principal); I10 Essential (primary) hypertension; E78.5 Hyperlipidemia, unspecified; F41.9 Anxiety disorder, unspecified; E03.9 Hypothyroidism, unspecified; G40.909 Epilepsy, unspecified, not intractable, without status epilepticus; M79.7 Fibromyalgia; M32.9 Systemic lupus erythematosus, unspecified; Z90.49 Acquired absence of other specified parts of digestive tract; Z98.890 Other specified postprocedural states; Z88.0 Allergy status to penicillin; Z60.2 Problems related to living alone; Z79.899 Other long term (current) drug therapy
CPT/HCPCS: 81001

== ENCOUNTER 2022-05-16 20:18 | Emergency (ER) | payer OTHER ==
[~2022-05-16] VITALS: Ht 172.7 cm; Wt 79.4 kg
[~2022-05-16 20:18] MED LIST changes: +CIPR500T5 PO
--- NOTE | 2022-05-16 20:33 | NUR ---
BIBS WITH C/O COUGH, CONGESTION, AND CHEST PRESSURE X 3 DAYS. PT IS AAO X 4, BREATHING UNLABORED. PT SEEN AND EXAMINED BY DR ZHENG. ATTACHED TO MONITOR AND PULSE OX. WILL CONT TO MONITOR AND CARRY OUT MD ORDERS.
--- NOTE | 2022-05-16 20:45 | NUR ---
IV LINE ESTABLISHED AT L HAND 20G, BLOOD DRAWN AND SENT TO LAB
[2022-05-16] MEDS ORDERED: KETOROLAC TROMETHAMINE INJ 30 MG/ML VIAL ONE (20:46)
--- NOTE | 2022-05-16 20:48 | NUR ---
SOLAR ENERGY SYSTEM INSTALLER HELPER AT PT'S BEDSIDE
[2022-05-16 20:55] LABS: BASOPHILS % (AUTO) 0.6 % (0.0-2.0); EOSINOPHILS % (AUTO) 5.2 % (0.0-6.0); HEMATOCRIT 43 % (33-45); HEMOGLOBIN 13.9 g/dL (11.5-14.8); LYMPHOCYTES # (AUTO) 2.1 K/uL (0.8-4.8); LYMPHOCYTES % (AUTO) 26.5 % (20.0-44.0); MEAN CORPUSCULAR HGB CONC 32 g/dl (31.0-36.0); MEAN CORPUSCULAR VOLUME 87 fL (82-100); MONOCYTES # (AUTO) 0.7 K/uL (0.1-1.30); MONOCYTES % (AUTO) 8.6 % (2.0-12.0); NEUTROPHILS # (AUTO) 4.7 K/uL (1.8-8.9); NEUTROPHILS % (AUTO) 59.1 % (43.0-81.0); PLATELET COUNT (AUTO) 217 K/uL (150-450); RED BLOOD CELL COUNT(AUTO) 4.94 MIL/uL (4.0-5.2)
[2022-05-16] MEDS ORDERED: KETOROLAC TROMETHAMINE INJ 30 MG/ML VIAL IV ONE (21:00)
[2022-05-16 21:09] LABS: CALCIUM, SERUM 8.7 mg/dL (8.5-10.1); CARBON DIOXIDE 23 mmol/L (21-32); CHLORIDE 106 mmol/L (98-107); CREATININE 1.2 mg/dL (0.6-1.3); GLUCOSE 95 mg/dL (74-106); POTASSIUM 3.7 mmol/L (3.5-5.1); SODIUM SERUM 139 mmol/L (136-145); UREA NITROGEN, BLOOD 27 mg/dL (7-18)
[2022-05-16] MEDS ORDERED: BENZ-13 PO ×2 (21:32→22:13)
[2022-05-16] MEDS ORDERED: AZIT250T PO (21:32)
[2022-05-16] MEDS ORDERED: AZIT250T13 PO (22:13)
[2022-05-16 22:25] VITALS: BP 128/80
--- NOTE | 2022-05-16 22:25 | NUR ---
Patient discharged to home in stable condition. Written and verbal after care instructions given. Patient verbalizes understanding of instruction.Pt ambulatory with a steady gait
== END 2022-05-16 22:26 | disposition home or self-care (01) ==
LOC: ER 20:22
DX: J40 Bronchitis, not specified as acute or chronic (principal); G40.909 Epilepsy, unspecified, not intractable, without status epilepticus; I10 Essential (primary) hypertension; E78.5 Hyperlipidemia, unspecified; F41.9 Anxiety disorder, unspecified; Z85.53 Personal history of malignant neoplasm of renal pelvis; Z90.49 Acquired absence of other specified parts of digestive tract; Z90.710 Acquired absence of both cervix and uterus; Z98.890 Other specified postprocedural states; Z60.2 Problems related to living alone; Z79.899 Other long term (current) drug therapy; Z88.0 Allergy status to penicillin
CPT/HCPCS: 99285; 96374; 71045; 93005; 85025; 80048; 36415; 84484; J1885

== ENCOUNTER 2022-07-13 13:56 | Emergency (ER) | payer OTHER ==
[~2022-07-13] VITALS: Ht 172.7 cm; Wt 83.9 kg
[~2022-07-13 13:56] MED LIST changes: +AZIT250T PO; +BENZ-13 PO
--- NOTE | 2022-07-13 14:11 | NUR ---
BIBS C/O PAIN ON URINATION X 4 DAYS. VITALS ARE WITHIN NORMAL LIMITS. AWAITING MD GOTTI.
--- NOTE | 2022-07-13 14:25 | NUR ---
urine collected and sent to lab
--- NOTE | 2022-07-13 14:26 | NUR ---
painstarted 1wk ago went to see urgent care 4days ago meds given macrodantin but to no avail she's worried about uti bec she claims she has only 1kidney left, right kidney removed SEPTEMBER 2016 BECAUSE OF KIDNEY CA
--- NOTE | 2022-07-13 14:48 | NUR ---
PT CLAIMS SHE'S IN PAIN 11/19 MD MADE AWARE
[2022-07-13 15:27] LABS: COLOR,URINE DARK YELLOW (YELLOW); PH,URINE 8.5 (5.0-8.0); PROTEIN,URINE NEGATIVE (NEGATIVE); UGLUCOSE NEGATIVE (NEGATIVE)
[2022-07-13 15:28] LABS: BILIRUBIN,URINE NEGATIVE (NEGATIVE); LEUKOCYTE ESTERASE ,URINE NEGATIVE (NEGATIVE); NITRITE, URINE NEGATIVE (NEGATIVE); UROBILINOGEN,URINE 0.2 EU/dL (0.2)
--- NOTE | 2022-07-13 15:55 | NUR ---
Patient discharged to home in stable condition. Written and verbal after care instructions given. Patient verbalizes understanding of instruction.
[2022-07-13 15:56] VITALS: BP 134/64
== END 2022-07-13 15:57 | disposition home or self-care (01) ==
LOC: ER 14:00
DX: R30.0 Dysuria (principal); I10 Essential (primary) hypertension; G40.909 Epilepsy, unspecified, not intractable, without status epilepticus; E78.5 Hyperlipidemia, unspecified; Z85.53 Personal history of malignant neoplasm of renal pelvis; Z90.49 Acquired absence of other specified parts of digestive tract; Z98.890 Other specified postprocedural states; Z79.899 Other long term (current) drug therapy; Z60.2 Problems related to living alone; Z88.0 Allergy status to penicillin
CPT/HCPCS: 87086-TC

== ENCOUNTER 2022-08-08 13:32 | Emergency (ER) | payer OTHER ==
[~2022-08-08] VITALS: Ht 170.2 cm; Wt 83.9 kg
[2022-08-08] MEDS ORDERED: ACETAMINOPHEN ES 500 MG TABLET PO ONE (14:00)
[2022-08-08] MEDS ORDERED: IV NS 0.9% 1,000 ML BAG IV ONE (14:00)
[2022-08-08] MEDS ORDERED: ONDANSETRON HCL/PF 4 MG/2 ML VIAL IVP ONE (14:00)
--- NOTE | 2022-08-08 14:00 | NUR ---
BIBS for c/o "Lower abdominal pain feels like burning was seen here before UA neg". Rates pain 06/19. Will continue to monitor the patient.
[2022-08-08 14:20] LABS: COLOR,URINE DARK YELLOW (YELLOW)
[2022-08-08 14:21] LABS: PROTEIN,URINE TRACE mg/dl (NEGATIVE); UGLUCOSE NEGATIVE (NEGATIVE)
[2022-08-08 14:22] LABS: BILIRUBIN,URINE NEGATIVE (NEGATIVE); LEUKOCYTE ESTERASE ,URINE NEGATIVE (NEGATIVE); NITRITE, URINE NEGATIVE (NEGATIVE); UROBILINOGEN,URINE 0.2 EU/dL (0.2)
[2022-08-08 14:23] LABS: BACTERIA,URINE None seen /HPF (None Seen); RBC,URINE 0-2 /HPF (0-2); SQUAMOUS EPITHELIAL CELL,UR Few /HPF (None Seen); WBC,URINE 0-2 /HPF (0-3)
[2022-08-08] MEDS ORDERED: ACETAMINOPHEN ES 500 MG TABLET ONE (14:50)
[2022-08-08] MEDS ORDERED: ONDANSETRON HCL/PF 4 MG/2 ML VIAL ONE (14:50)
[2022-08-08 14:59] LABS: BASOPHILS # (AUTO) 0.1 K/uL (0.0-0.2); BASOPHILS % (AUTO) 0.8 % (0.0-2.0); EOSINOPHILS % (AUTO) 4.2 % (0.0-6.0); HEMATOCRIT 44 % (33-45); HEMOGLOBIN 14.4 g/dL (11.5-14.8); LYMPHOCYTES # (AUTO) 1.8 K/uL (0.8-4.8); LYMPHOCYTES % (AUTO) 23.4 % (20.0-44.0); MEAN CORPUSCULAR HGB CONC 33 g/dl (31.0-36.0); MEAN CORPUSCULAR VOLUME 86 fL (82-100); MONOCYTES # (AUTO) 0.5 K/uL (0.1-1.30); MONOCYTES % (AUTO) 6.9 % (2.0-12.0); NEUTROPHILS # (AUTO) 4.9 K/uL (1.8-8.9); NEUTROPHILS % (AUTO) 64.7 % (43.0-81.0); PLATELET COUNT (AUTO) 190 K/uL (150-450); WHITE BLOOD COUNT (AUTO) 7.6 K/uL (4.3-11.0)
[2022-08-08 15:16] LABS: CALCIUM, SERUM 9.4 mg/dL (8.5-10.1); CREATININE 1.2 mg/dL (0.6-1.3); POTASSIUM 3.8 mmol/L (3.5-5.1)
[2022-08-08 15:20] LABS: ALBUMIN 4.2 g/dL (3.4-5.0); BILIRUBIN,DIRECT 0.1 mg/dL (0.0-0.2); BILIRUBIN,TOTAL 0.5 mg/dL (0.2-1.0); TOTAL PROTEIN, SERUM 8.2 g/dL (6.4-8.2)
[2022-08-08] MEDS ORDERED: PHEN-704 PO (16:35)
--- NOTE | 2022-08-08 16:37 | NUR ---
PT RESTING IN BED, BREATHING EVEN AND UNLABORED. CONNECTED TO MONITOR, VSS.
[2022-08-08] MEDS ORDERED: METR500T PO (17:01)
[2022-08-08] MEDS ORDERED: CIPR500T5 PO (17:01)
[2022-08-08 17:35] VITALS: BP 121/77
== END 2022-08-08 17:36 | disposition home or self-care (01) ==
LOC: ER 13:41
DX: K57.32 Diverticulitis of large intestine without perforation or abscess without bleeding (principal); R30.0 Dysuria; R10.30 Lower abdominal pain, unspecified; I10 Essential (primary) hypertension; E78.5 Hyperlipidemia, unspecified; F41.9 Anxiety disorder, unspecified; G40.909 Epilepsy, unspecified, not intractable, without status epilepticus; E03.9 Hypothyroidism, unspecified; Z90.49 Acquired absence of other specified parts of digestive tract; Z98.890 Other specified postprocedural states; Z79.899 Other long term (current) drug therapy; Z60.2 Problems related to living alone; Z88.0 Allergy status to penicillin
CPT/HCPCS: 99285; 74176; 96374; 96361; 85025; 80048; 83690; 80076; 81001; 36415; J2405

== ENCOUNTER 2022-09-06 16:45 | Emergency (ER) | payer OTHER ==
[~2022-09-06] VITALS: Ht 170.2 cm; Wt 85.3 kg
[~2022-09-06 16:45] MED LIST changes: +METR500T PO; +PHEN-704 PO
[2022-09-06] MEDS ORDERED: MORPHINE SULFATE INJ 2 MG/ML DISP.SYRIN IV ONE ×2 (17:00→18:00)
[2022-09-06] MEDS ORDERED: AMLO-213 PO (17:14)
[2022-09-06] MEDS ORDERED: CALC0.253 PO (17:14)
[2022-09-06] MEDS ORDERED: LORA-258 PO (17:14)
[2022-09-06] MEDS ORDERED: AZEL137S7 (17:14)
[2022-09-06] MEDS ORDERED: FAMO20TA29 PO (17:14)
[2022-09-06] MEDS ORDERED: LEVO5TAB13 PO (17:14)
[2022-09-06] MEDS ORDERED: FLUT16SP16 (17:14)
[2022-09-06] MEDS ORDERED: ROSU5TAB13 PO (17:14)
[2022-09-06] MEDS ORDERED: TOPI25TA49 PO (17:14)
[2022-09-06] MEDS ORDERED: MORPHINE SULFATE INJ 4 MG/ML DISP.SYRIN ONE ×2 (17:19→19:20)
[2022-09-06] MEDS ORDERED: ALBU18HF2 IH (18:22)
[2022-09-06] MEDS ORDERED: FLUT12AE15 INH (18:22)
--- NOTE | 2022-09-06 18:30 | NUR ---
MOVE SHEET SUBMITTED.
--- NOTE | 2022-09-06 18:32 | NUR ---
covid swab collected and sent to lab
--- NOTE | 2022-09-06 18:45 | NUR ---
JAQUELIN REGAL [phone]
--- NOTE | 2022-09-06 18:55 | NUR ---
MOVE SHEET SUBMITTED.
[2022-09-06 19:02] LABS: BASOPHILS # (AUTO) 0.1 K/uL (0.0-0.2); BASOPHILS % (AUTO) 0.8 % (0.0-2.0); EOSINOPHILS % (AUTO) 1.9 % (0.0-6.0); HEMATOCRIT 46 % (33-45); LYMPHOCYTES # (AUTO) 1.5 K/uL (0.8-4.8); LYMPHOCYTES % (AUTO) 14.3 % (20.0-44.0); MEAN CORPUSCULAR HGB CONC 33 g/dl (31.0-36.0); MEAN CORPUSCULAR VOLUME 88 fL (82-100); MONOCYTES # (AUTO) 0.5 K/uL (0.1-1.30); MONOCYTES % (AUTO) 4.8 % (2.0-12.0); NEUTROPHILS # (AUTO) 8.3 K/uL (1.8-8.9); NEUTROPHILS % (AUTO) 78.2 % (43.0-81.0); PLATELET COUNT (AUTO) 192 K/uL (150-450); RED BLOOD CELL COUNT(AUTO) 5.27 MIL/uL (4.0-5.2); WHITE BLOOD COUNT (AUTO) 10.6 K/uL (4.3-11.0)
[2022-09-06 19:16] LABS: CALCIUM, SERUM 9.6 mg/dL (8.5-10.1); POTASSIUM 3.8 mmol/L (3.5-5.1)
[2022-09-06] MEDS ORDERED: HYDROMORPHONE 1 MG/1 ML DISP.SYRIN IV ONE (19:30)
--- NOTE | 2022-09-06 20:13 | NUR ---
SPOKE TO JAQUELIN JAIN, WILL RECEIVE A BED AT [facility]. FAXED NEGATIVE COVID RESULT TO [facility] AWAITING CALLBACK FROM DR. CERVANTES.
[2022-09-06] MEDS ORDERED: HYDROMORPHONE 1 MG/1 ML DISP.SYRIN ONE (20:44)
--- NOTE | 2022-09-06 21:37 | NUR ---
ACCEPTANCE INFORMATION: [facility] RN MICHELLE TEL: [phone] Addendum: 09/06/22 at 2138 by JEFFERSONVA MICHELLE [phone] [facility] [phone] Addendum: 09/06/22 at 2139 by JEFFERSONVA [facility] [id number]
--- NOTE | 2022-09-06 21:40 | NUR ---
[facility] CALLED ETA 60-90 MINUTES.
--- NOTE | 2022-09-06 22:36 | NUR ---
REPORT GIVEN TO MICHELLE SANON OF [facility]
[2022-09-06 22:50] VITALS: BP 126/68
--- NOTE | 2022-09-06 23:00 | NUR ---
PICKED UP BY TRANSPORT IN STABLE CONDITION
== END 2022-09-06 23:01 | disposition short-term general hospital (02) ==
LOC: ER 16:48
DX: S72.092A Other fracture of head and neck of left femur, initial encounter for closed fracture (principal); G40.909 Epilepsy, unspecified, not intractable, without status epilepticus; I10 Essential (primary) hypertension; E78.5 Hyperlipidemia, unspecified; F41.9 Anxiety disorder, unspecified; Z98.890 Other specified postprocedural states; Z60.2 Problems related to living alone; Z20.822 Contact with and (suspected) exposure to COVID-19; Z79.899 Other long term (current) drug therapy; Z88.0 Allergy status to penicillin; W01.0XXA Fall on same level from slipping, tripping and stumbling without subsequent striking against object, initial encounter; Y93.89 Activity, other specified; Y92.89 Other specified places as the place of occurrence of the external cause; Y99.8 Other external cause status
CPT/HCPCS: 99285; 96374; 96375; 87426; 93005; 73610; 73503; 73564; 85025; 80048; 36415; 85730; J2270 ×2; J1170; C9803; 73502

== ENCOUNTER 2023-03-21 19:46 | Emergency (ER) | payer OTHER ==
[~2023-03-21] VITALS: Ht 162.6 cm; Wt 78.9 kg
[~2023-03-21 19:46] MED LIST changes: -ACET-2605 PO; -ACET325C7 PO; +ALBU18HF2 IH; +AMLO-213 PO; -ATOR20TA PO; +AZEL137S7; -AZIT250T PO; -AZIT250T13 PO; -BENZ-13 PO; +CALC0.253 PO; -CIPR500T5 PO; -CYCL5TAB PO; -FAMO-131 PO; +FAMO20TA29 PO; +FLUT12AE15 INH; +FLUT16SP16; -GABA-532 PO; -HALO2TAB PO; -HYDR200T4 PO; +LEVO5TAB13 PO; +LORA-258 PO; -METR500T PO; -MONT10TA22 PO; -NITR100C6 PO; -ONDA4TAB11 PO; -PANT40TA49 PO; -PHEN-704 PO; +ROSU5TAB13 PO; +TOPI25TA49 PO
[2023-03-21 21:29] LABS: APPEARANCE,URINE CLEAR (CLEAR); BILIRUBIN,URINE NEGATIVE (NEGATIVE); BLOOD, URINE NEGATIVE Ery/uL (NEGATIVE); COLOR,URINE YELLOW (YELLOW); KETONES,URINE NEGATIVE (NEGATIVE); LEUKOCYTE ESTERASE ,URINE NEGATIVE (NEGATIVE); NITRITE, URINE POSITIVE (NEGATIVE); PH,URINE 5.5 (5.0-8.0); PROTEIN,URINE NEGATIVE (NEGATIVE); UGLUCOSE TRACE mg/dL (NEGATIVE)
[2023-03-21] MEDS ORDERED: CIPROFLOXACIN IV RTU 400 MG in PREMIX 1 EA IV STA (21:39)
[2023-03-21] MEDS ORDERED: IV NS 0.9% 1,000 ML BAG IV ONE (22:00)
[2023-03-21 22:02] LABS: BASOPHILS % (AUTO) 0.6 % (0.0-2.0); EOSINOPHILS # (AUTO) 0.5 K/uL (0.0-0.7); EOSINOPHILS % (AUTO) 6.1 % (0.0-6.0); HEMATOCRIT 43 % (33-45); HEMOGLOBIN 13.6 g/dL (11.5-14.8); LYMPHOCYTES # (AUTO) 2.2 K/uL (0.8-4.8); LYMPHOCYTES % (AUTO) 28.4 % (20.0-44.0); MEAN CORPUSCULAR HEMOGLOBIN 28 PG (26.0-33.0); MEAN CORPUSCULAR HGB CONC 32 g/dl (31.0-36.0); MEAN CORPUSCULAR VOLUME 86 fL (82-100); MONOCYTES # (AUTO) 0.6 K/uL (0.1-1.30); MONOCYTES % (AUTO) 8.3 % (2.0-12.0); NEUTROPHILS # (AUTO) 4.3 K/uL (1.8-8.9); NEUTROPHILS % (AUTO) 56.6 % (43.0-81.0); PLATELET COUNT (AUTO) 222 K/uL (150-450); RED BLOOD CELL COUNT(AUTO) 4.94 MIL/uL (4.0-5.2); RED CELL DISTRIBUTION WIDTH 16.1 % (11.5-15.0); WHITE BLOOD COUNT (AUTO) 7.7 K/uL (4.3-11.0)
[2023-03-21 22:11] LABS: RBC,URINE 0-2 /HPF (0-2); WBC,URINE 0-2 /HPF (0-3)
[2023-03-21 22:12] LABS: CALCIUM, SERUM 8.9 mg/dL (8.5-10.1); CREATININE 1.6 mg/dL (0.6-1.3); POTASSIUM 4.2 mmol/L (3.5-5.1)
[2023-03-21 22:12] LABS: ADD URINE CULTURE YES; BACTERIA,URINE RARE /HPF (None Seen)
[2023-03-21] MEDS ORDERED: CIPROFLOXACIN IV RTU 200 ML IV ONE (22:48)
[2023-03-22] MEDS ORDERED: CIPR500T5 PO (01:18)
[2023-03-22 01:25] VITALS: BP 111/73; TEMP 98; O2SAT 97
== END 2023-03-22 01:25 | disposition home or self-care (01) ==
LOC: ER 19:48
DX: N39.0 Urinary tract infection, site not specified (principal); I10 Essential (primary) hypertension; E78.5 Hyperlipidemia, unspecified; M79.7 Fibromyalgia; F41.9 Anxiety disorder, unspecified; E03.9 Hypothyroidism, unspecified; Z90.79 Acquired absence of other genital organ(s); Z90.710 Acquired absence of both cervix and uterus; Z88.0 Allergy status to penicillin; Z60.2 Problems related to living alone; Z79.899 Other long term (current) drug therapy
CPT/HCPCS: 99284; 96365; 96361; 85025; 80048; 87086; 81001; 36415; J7030; A4216; J0744 ×2; A4223

== ENCOUNTER 2023-05-26 08:49 | Emergency (ER) | payer OTHER, MEDICAID ==
[~2023-05-26] VITALS: Ht 170.2 cm; Wt 77.6 kg
[~2023-05-26 08:49] MED LIST changes: +CIPR500T5 PO
[2023-05-26 09:58] LABS: BASOPHILS # (AUTO) 0.1 K/uL (0.0-0.2); BASOPHILS % (AUTO) 0.7 % (0.0-2.0); EOSINOPHILS # (AUTO) 0.3 K/uL (0.0-0.7); EOSINOPHILS % (AUTO) 3.7 % (0.0-6.0); HEMATOCRIT 44 % (33-45); HEMOGLOBIN 14.5 g/dL (11.5-14.8); LYMPHOCYTES # (AUTO) 1.5 K/uL (0.8-4.8); LYMPHOCYTES % (AUTO) 18.1 % (20.0-44.0); MEAN CORPUSCULAR HEMOGLOBIN 29 PG (26.0-33.0); MEAN CORPUSCULAR HGB CONC 33 g/dl (31.0-36.0); MEAN CORPUSCULAR VOLUME 87 fL (82-100); MONOCYTES # (AUTO) 0.5 K/uL (0.1-1.30); MONOCYTES % (AUTO) 5.7 % (2.0-12.0); NEUTROPHILS # (AUTO) 5.8 K/uL (1.8-8.9); NEUTROPHILS % (AUTO) 71.8 % (43.0-81.0); PLATELET COUNT (AUTO) 184 K/uL (150-450); RED BLOOD CELL COUNT(AUTO) 5.03 MIL/uL (4.0-5.2); RED CELL DISTRIBUTION WIDTH 14.4 % (11.5-15.0); WHITE BLOOD COUNT (AUTO) 8.1 K/uL (4.3-11.0)
[2023-05-26 09:58] LABS: APPEARANCE,URINE TURBID (CLEAR); COLOR,URINE ORANGE (YELLOW)
[2023-05-26 10:04] LABS: PH,URINE 6.5 (5.0-8.0)
[2023-05-26 10:05] LABS: BILIRUBIN,URINE NEGATIVE (NEGATIVE); BLOOD, URINE NEGATIVE Ery/uL (NEGATIVE); PROTEIN,URINE 3+ mg/dl (NEGATIVE); UGLUCOSE 2+ mg/dL (NEGATIVE)
[2023-05-26 10:06] LABS: KETONES,URINE 1+ mg/dL (NEGATIVE); LEUKOCYTE ESTERASE ,URINE 2+ (NEGATIVE); NITRITE, URINE POSITIVE (NEGATIVE)
[2023-05-26] MEDS ORDERED: ONDANSETRON HCL/PF 4 MG/2 ML VIAL ONE (10:15)
[2023-05-26] MEDS ORDERED: KETOROLAC TROMETHAMINE 15 MG/ML VIAL ONE (10:15)
[2023-05-26] MEDS ORDERED: MORPHINE SULFATE INJ 4 MG/ML DISP.SYRIN ONE (10:16)
[2023-05-26] MEDS ORDERED: ACETAMINOPHEN ES 500 MG TABLET ONE (10:16)
[2023-05-26 10:19] LABS: CALCIUM, SERUM 9.4 mg/dL (8.5-10.1); CREATININE 0.9 mg/dL (0.6-1.3); POTASSIUM 3.7 mmol/L (3.5-5.1)
[2023-05-26 10:25] LABS: BILIRUBIN,TOTAL 0.7 mg/dL (0.2-1.0); TOTAL PROTEIN, SERUM 7.9 g/dL (6.4-8.2)
[2023-05-26 10:28] LABS: ADD URINE CULTURE YES; BACTERIA,URINE Few /HPF (None Seen)
[2023-05-26] MEDS: ACETAMINOPHEN ES 500 MG TABLET PO ONE (10:30)
[2023-05-26] MEDS: KETOROLAC TROMETHAMINE 15 MG/ML VIAL IV ONE (10:30)
[2023-05-26] MEDS: ONDANSETRON HCL/PF 4 MG/2 ML VIAL IVP ONE (10:30)
[2023-05-26] MEDS: IV NS 0.9% 1,000 ML BAG IV ONE (10:30)
[2023-05-26] MEDS: MORPHINE SULFATE INJ 2 MG/ML DISP.SYRIN IV ONE (10:30)
[2023-05-26 10:34] LABS: BILIRUBIN,DIRECT 0.1 mg/dL (0.0-0.2)
[2023-05-26 10:46] LABS: RBC,URINE 21-50 /HPF (0-2); SQUAMOUS EPITHELIAL CELL,UR Moderate /HPF (None Seen)
[2023-05-26 10:49] LABS: YEAST,URINE Few /HPF (None Seen)
[2023-05-26] MEDS: CEFTRIAXONE 1 G in IV D5W 50 ML IV ONE (11:00)
[2023-05-26] MEDS ORDERED: HYDR-4303 PO (11:02)
[2023-05-26] MEDS ORDERED: NITR100C6 PO (11:02)
[2023-05-26] MEDS ORDERED: PHEN-704 PO (11:03)
[2023-05-26] MEDS ORDERED: CEFTRIAXONE 1GM BAG (ER ONLY) 50 ML IV ONE (11:08)
[2023-05-26 11:44] VITALS: BP 128/66; TEMP 98; O2SAT 100
== END 2023-05-26 11:49 | disposition home or self-care (01) ==
LOC: ER 08:56
DX: N39.0 Urinary tract infection, site not specified (principal); R10.30 Lower abdominal pain, unspecified; G40.909 Epilepsy, unspecified, not intractable, without status epilepticus; E78.5 Hyperlipidemia, unspecified; F41.9 Anxiety disorder, unspecified; E03.9 Hypothyroidism, unspecified; Z79.899 Other long term (current) drug therapy; Z98.890 Other specified postprocedural states; Z90.49 Acquired absence of other specified parts of digestive tract; Z88.0 Allergy status to penicillin
CPT/HCPCS: 99284; 96365; 96375; 96361; 85025; 80048; 87086; 83690; 80076; 81001; 36415; J2270; J2405; J7030; J0696; J1885

== ENCOUNTER → 2023-07-03 | Emergency (ER) | payer OTHER, MEDICAID ==
[~2023-07-03] VITALS: Ht 172.7 cm; Wt 79.4 kg
[~2023-07-03] MED LIST changes: +CEPH500T PO; -CIPR500T5 PO; +HYDR-4303 PO; +NITR100C6 PO; +PHEN-704 PO
[2023-07-03 15:18] LABS: APPEARANCE,URINE CLEAR (CLEAR); BILIRUBIN,URINE NEGATIVE (NEGATIVE); BLOOD, URINE TRACE-INTA Ery/uL (NEGATIVE); COLOR,URINE YELLOW (YELLOW); KETONES,URINE NEGATIVE (NEGATIVE); LEUKOCYTE ESTERASE ,URINE NEGATIVE (NEGATIVE); NITRITE, URINE POSITIVE (NEGATIVE); PROTEIN,URINE TRACE mg/dl (NEGATIVE); UGLUCOSE TRACE mg/dL (NEGATIVE)
[2023-07-03 15:36] VITALS: BP 110/66; TEMP 98.4; O2SAT 100
[2023-07-03 15:48] LABS: ADD URINE CULTURE YES; BACTERIA,URINE 1+ /HPF (None Seen); WBC,URINE NONE SEEN /HPF (0-3)
[2023-07-03 15:49] LABS: SQUAMOUS EPITHELIAL CELL,UR Few /HPF (None Seen)
== END | disposition home or self-care (01) ==
LOC: ER 13:41
DX: N39.0 Urinary tract infection, site not specified (principal); I10 Essential (primary) hypertension; E78.5 Hyperlipidemia, unspecified; M79.7 Fibromyalgia; E03.9 Hypothyroidism, unspecified; F41.9 Anxiety disorder, unspecified; Z90.49 Acquired absence of other specified parts of digestive tract; Z90.711 Acquired absence of uterus with remaining cervical stump; Z88.0 Allergy status to penicillin; Z79.899 Other long term (current) drug therapy
CPT/HCPCS: 81001

== ENCOUNTER 2023-08-21 22:17 | Emergency (ER) | payer OTHER ==
[~2023-08-21] VITALS: Ht 172.7 cm; Wt 79.4 kg
[2023-08-21] MEDS: ONDANSETRON HCL/PF - ER 4 MG/2 ML VIAL IV ONE (23:30)
[2023-08-21] MEDS: MORPHINE SULFATE INJ 2 MG/ML DISP.SYRIN IV ONE (23:30)
[2023-08-21 23:53] LABS: APPEARANCE,URINE CLEAR (CLEAR); BILIRUBIN,URINE NEGATIVE (NEGATIVE); BLOOD, URINE NEGATIVE Ery/uL (NEGATIVE); COLOR,URINE YELLOW (YELLOW); KETONES,URINE NEGATIVE (NEGATIVE); LEUKOCYTE ESTERASE ,URINE 1+ (NEGATIVE); NITRITE, URINE NEGATIVE (NEGATIVE); PH,URINE 7.5 (5.0-8.0); PROTEIN,URINE NEGATIVE (NEGATIVE); UGLUCOSE NEGATIVE (NEGATIVE)
[2023-08-21 23:54] LABS: BASOPHILS # (AUTO) 0.1 K/uL (0.0-0.2); BASOPHILS % (AUTO) 1.2 % (0.0-2.0); EOSINOPHILS # (AUTO) 0.5 K/uL (0.0-0.7); EOSINOPHILS % (AUTO) 6.5 % (0.0-6.0); HEMATOCRIT 40 % (33-45); HEMOGLOBIN 12.7 g/dL (11.5-14.8); LYMPHOCYTES # (AUTO) 2.2 K/uL (0.8-4.8); LYMPHOCYTES % (AUTO) 26.4 % (20.0-44.0); MEAN CORPUSCULAR HEMOGLOBIN 29 PG (26.0-33.0); MEAN CORPUSCULAR HGB CONC 32 g/dl (31.0-36.0); MEAN CORPUSCULAR VOLUME 90 fL (82-100); MONOCYTES # (AUTO) 0.6 K/uL (0.1-1.30); MONOCYTES % (AUTO) 7.9 % (2.0-12.0); NEUTROPHILS # (AUTO) 4.8 K/uL (1.8-8.9); PLATELET COUNT (AUTO) 225 K/uL (150-450); RED BLOOD CELL COUNT(AUTO) 4.41 MIL/uL (4.0-5.2); RED CELL DISTRIBUTION WIDTH 14.9 % (11.5-15.0); WHITE BLOOD COUNT (AUTO) 8.2 K/uL (4.3-11.0)
[2023-08-22 00:09] LABS: ALBUMIN 3.3 g/dL (3.4-5.0); BILIRUBIN,TOTAL 0.2 mg/dL (0.2-1.0); CALCIUM, SERUM 8.6 mg/dL (8.5-10.1); CREATININE 1.3 mg/dL (0.6-1.3); POTASSIUM 4.3 mmol/L (3.5-5.1); TOTAL PROTEIN, SERUM 7.4 g/dL (6.4-8.2)
[2023-08-22] MEDS ORDERED: ONDANSETRON HCL/PF 4 MG/2 ML VIAL ONE (00:26)
[2023-08-22] MEDS ORDERED: MORPHINE SULFATE INJ 2 MG/ML DISP.SYRIN ONE (00:26)
[2023-08-22 01:14] LABS: RBC,URINE 0-2 /HPF (0-2)
[2023-08-22 01:15] LABS: ADD URINE CULTURE YES; BACTERIA,URINE 2+ /HPF (None Seen)
[2023-08-22] MEDS ORDERED: NITR100C6 PO (01:40)
[2023-08-22 01:52] VITALS: BP 136/88; TEMP 98.2; O2SAT 97
[2023-08-22] MEDS ORDERED: NITROFURANTOIN/MONOHYDRATE MACROCRYSTALS 100 MG CAPSULE ONE (01:57)
[2023-08-22] MEDS ORDERED: NITROFURANTOIN/MONOHYDRATE MACROCRYSTALS 100 MG CAPSULE PO ONE (02:00)
[2023-08-22] MEDS: NITROFURANTOIN/MONOHYDRATE MACROCRYSTALS 100 MG CAPSULE PO ONE (02:01)
== END 2023-08-22 02:17 | disposition home or self-care (01) ==
LOC: ER 22:30
DX: N39.0 Urinary tract infection, site not specified (principal); R10.31 Right lower quadrant pain; I10 Essential (primary) hypertension; E78.5 Hyperlipidemia, unspecified; M79.7 Fibromyalgia; F41.9 Anxiety disorder, unspecified; E03.9 Hypothyroidism, unspecified; Z90.49 Acquired absence of other specified parts of digestive tract; Z88.0 Allergy status to penicillin; Z60.2 Problems related to living alone; Z79.899 Other long term (current) drug therapy
CPT/HCPCS: 99285; 74176; 96374; 96375; 85025; 87040; 87086; 83605; 83690; 81001; 36415; 80053; J2405; J2270

== ENCOUNTER 2023-12-05 15:44 | Emergency (ER) | payer OTHER ==
[~2023-12-05] VITALS: Ht 172.7 cm; Wt 81.2 kg
[2023-12-05] MEDS ORDERED: ACETAMINOPHEN ES 500 MG TABLET ONE (16:18)
[2023-12-05] MEDS ORDERED: IBUPROFEN 400 MG TABLET ONE (16:18)
[2023-12-05 16:31] LABS: BASOPHILS # (AUTO) 0.1 K/uL (0.0-0.2); BASOPHILS % (AUTO) 0.8 % (0.0-2.0); EOSINOPHILS # (AUTO) 0.3 K/uL (0.0-0.7); EOSINOPHILS % (AUTO) 4.4 % (0.0-6.0); HEMATOCRIT 43 % (33-45); LYMPHOCYTES # (AUTO) 1.5 K/uL (0.8-4.8); LYMPHOCYTES % (AUTO) 22.1 % (20.0-44.0); MEAN CORPUSCULAR HEMOGLOBIN 29 PG (26.0-33.0); MEAN CORPUSCULAR HGB CONC 33 g/dl (31.0-36.0); MEAN CORPUSCULAR VOLUME 87 fL (82-100); MONOCYTES # (AUTO) 0.6 K/uL (0.1-1.30); NEUTROPHILS # (AUTO) 4.3 K/uL (1.8-8.9); NEUTROPHILS % (AUTO) 63.7 % (43.0-81.0); PLATELET COUNT (AUTO) 190 K/uL (150-450); RED BLOOD CELL COUNT(AUTO) 4.91 MIL/uL (4.0-5.2); RED CELL DISTRIBUTION WIDTH 14.6 % (11.5-15.0); WHITE BLOOD COUNT (AUTO) 6.8 K/uL (4.3-11.0)
[2023-12-05 16:42] LABS: CALCIUM, SERUM 8.8 mg/dL (8.5-10.1); CREATININE 1.1 mg/dL (0.6-1.3)
[2023-12-05 16:46] LABS: INR 1.26 (0.91-1.10); PARTIAL THROMBOPLASTIN TIME 34.8 SEC (24.3-34.3); PROTHROMBIN TIME 13.2 SECS (9.2-11.1)
[2023-12-05] MEDS: ENOXAPARIN SODIUM 80 MG/0.8 ML DISP.SYRIN SQ ONE (19:00)
[2023-12-05] MEDS ORDERED: ONDA-97 PO (19:28)
[2023-12-05] MEDS ORDERED: GEMTESA PO (19:28)
[2023-12-05] MEDS ORDERED: APIX5TAB PO (19:28)
[2023-12-05] MEDS ORDERED: DENO60DI SQ (19:28)
[2023-12-05] MEDS ORDERED: ESTR42.511 VG (19:28)
[2023-12-05] MEDS ORDERED: SEMA3TAB PO (19:28)
[2023-12-05] MEDS ORDERED: FINA5TAB11 PO (19:28)
[2023-12-05] MEDS ORDERED: ONDANSETRON HCL/PF 4 MG/2 ML VIAL ONE (21:04)
[2023-12-05] MEDS ORDERED: MORPHINE SULFATE INJ 4 MG/ML DISP.SYRIN ONE (21:04)
[2023-12-05] MEDS: ONDANSETRON HCL/PF 4 MG/2 ML VIAL IV ONE (21:17)
[2023-12-05] MEDS: MORPHINE SULFATE INJ 2 MG/ML DISP.SYRIN IV ONE (21:17)
[2023-12-05] MEDS ORDERED: MORPHINE SULFATE INJ 2 MG/ML DISP.SYRIN IV ONE (23:00)
[2023-12-05] MEDS ORDERED: oxyCODONE/APAP (5/325 MG) 1 UDTAB TABLET ONE (23:15)
[2023-12-05] MEDS: oxyCODONE/APAP (5/325 MG) 1 UDTAB TABLET PO ONE (23:28)
[2023-12-06 00:08] VITALS: BP 113/76; TEMP 98.3; O2SAT 98
== END 2023-12-06 00:10 ==
LOC: ER 15:57
DX: I82.402 Acute embolism and thrombosis of unspecified deep veins of left lower extremity (principal); R06.02 Shortness of breath; G40.909 Epilepsy, unspecified, not intractable, without status epilepticus; M79.7 Fibromyalgia; I10 Essential (primary) hypertension; E78.5 Hyperlipidemia, unspecified; F41.9 Anxiety disorder, unspecified; E03.9 Hypothyroidism, unspecified; Z87.42 Personal history of other diseases of the female genital tract; Z87.448 Personal history of other diseases of urinary system; Z85.528 Personal history of other malignant neoplasm of kidney; Z90.49 Acquired absence of other specified parts of digestive tract; Z90.710 Acquired absence of both cervix and uterus; Z90.5 Acquired absence of kidney; Z88.0 Allergy status to penicillin; Z86.16 Personal history of COVID-19; Z60.2 Problems related to living alone; Z20.822 Contact with and (suspected) exposure to COVID-19
CPT/HCPCS: 99285; 96374; 93971; 96375; 87426; 85025; 80048; 36415; 85730; 96372; J2270; J2405; J1650

== ENCOUNTER 2024-03-03 16:35 | Emergency (ER) | payer OTHER, MEDICAID ==
[~2024-03-03] VITALS: Ht 170.2 cm; Wt 83.5 kg
[~2024-03-03 16:35] MED LIST changes: -ALBU18HF2 IH; +APIX5TAB PO; -CEPH500T PO; +DENO60DI SQ; -DICY20TA11 PO; +ESTR42.511 VG; +FINA5TAB11 PO; -FLUT12AE15 INH; +GEMTESA PO; -HYDR-4303 PO; -NITR100C6 PO; +ONDA-97 PO; -PHEN-704 PO; +SEMA3TAB PO
[2024-03-03 18:15] LABS: BASOPHILS # (AUTO) 0.1 K/uL (0.0-0.2); BASOPHILS % (AUTO) 0.7 % (0.0-2.0); EOSINOPHILS # (AUTO) 0.3 K/uL (0.0-0.7); EOSINOPHILS % (AUTO) 3.5 % (0.0-6.0); HEMATOCRIT 42 % (33-45); HEMOGLOBIN 13.9 g/dL (11.5-14.8); LYMPHOCYTES # (AUTO) 1.9 K/uL (0.8-4.8); LYMPHOCYTES % (AUTO) 25.2 % (20.0-44.0); MEAN CORPUSCULAR HEMOGLOBIN 29 PG (26.0-33.0); MEAN CORPUSCULAR HGB CONC 33 g/dl (31.0-36.0); MEAN CORPUSCULAR VOLUME 88 fL (82-100); MONOCYTES # (AUTO) 0.5 K/uL (0.1-1.30); MONOCYTES % (AUTO) 6.5 % (2.0-12.0); NEUTROPHILS # (AUTO) 4.9 K/uL (1.8-8.9); NEUTROPHILS % (AUTO) 64.1 % (43.0-81.0); PLATELET COUNT (AUTO) 200 K/uL (150-450); RED BLOOD CELL COUNT(AUTO) 4.79 MIL/uL (4.0-5.2); RED CELL DISTRIBUTION WIDTH 14.7 % (11.5-15.0); WHITE BLOOD COUNT (AUTO) 7.6 K/uL (4.3-11.0)
[2024-03-03 18:25] LABS: CALCIUM, SERUM 8.9 mg/dL (8.5-10.1); CREATININE 1.2 mg/dL (0.6-1.3); POTASSIUM 4.2 mmol/L (3.5-5.1)
[2024-03-03 18:30] LABS: INR 1.13 (0.91-1.10); PARTIAL THROMBOPLASTIN TIME 29.2 SEC (24.3-34.3); PROTHROMBIN TIME 11.5 SECS (9.2-11.1)
[2024-03-03] MEDS ORDERED: HYDR-3980 PO (19:17)
[2024-03-03 19:44] VITALS: BP 125/79; TEMP 98; O2SAT 99
== END 2024-03-03 19:45 | disposition home or self-care (01) ==
LOC: ER 16:42
DX: I82.412 Acute embolism and thrombosis of left femoral vein (principal); M79.652 Pain in left thigh; Z79.01 Long term (current) use of anticoagulants; Z79.899 Other long term (current) drug therapy; Z86.718 Personal history of other venous thrombosis and embolism; Z88.0 Allergy status to penicillin; Z60.2 Problems related to living alone
CPT/HCPCS: 36415; 80048-TC; 85025-TC; 85730-TC; 93971-TC

== ENCOUNTER 2024-06-13 13:15 | Emergency (ER) | payer OTHER ==
[~2024-06-13] VITALS: Ht 167.6 cm; Wt 64.4 kg
[~2024-06-13 13:15] MED LIST changes: +HYDR-3980 PO
[2024-06-13 14:09] LABS: BASOPHILS # (AUTO) 0.1 K/uL (0.0-0.2); BASOPHILS % (AUTO) 0.8 % (0.0-2.0); EOSINOPHILS # (AUTO) 0.2 K/uL (0.0-0.7); EOSINOPHILS % (AUTO) 2.8 % (0.0-6.0); HEMATOCRIT 45 % (33-45); LYMPHOCYTES # (AUTO) 2.1 K/uL (0.8-4.8); LYMPHOCYTES % (AUTO) 23.3 % (20.0-44.0); MEAN CORPUSCULAR HEMOGLOBIN 29 PG (26.0-33.0); MEAN CORPUSCULAR HGB CONC 33 g/dl (31.0-36.0); MEAN CORPUSCULAR VOLUME 87 fL (82-100); MONOCYTES # (AUTO) 0.6 K/uL (0.1-1.30); MONOCYTES % (AUTO) 6.6 % (2.0-12.0); NEUTROPHILS # (AUTO) 5.9 K/uL (1.8-8.9); NEUTROPHILS % (AUTO) 66.5 % (43.0-81.0); PLATELET COUNT (AUTO) 196 K/uL (150-450); RED BLOOD CELL COUNT(AUTO) 5.22 MIL/uL (4.0-5.2); RED CELL DISTRIBUTION WIDTH 14.4 % (11.5-15.0); WHITE BLOOD COUNT (AUTO) 8.9 K/uL (4.3-11.0)
[2024-06-13 14:10] LABS: CREATININE 1.1 mg/dL (0.6-1.3); POTASSIUM 4.5 mmol/L (3.5-5.1)
[2024-06-13 14:15] LABS: BILIRUBIN,DIRECT 0.2 mg/dL (0.0-0.2); BILIRUBIN,TOTAL 0.5 mg/dL (0.2-1.0); TOTAL PROTEIN, SERUM 8.1 g/dL (6.4-8.2)
[2024-06-13] MEDS ORDERED: SENN8.6T19 PO (15:29)
[2024-06-13] MEDS ORDERED: LACT10SO29 PO (15:29)
[2024-06-13 15:59] VITALS: BP 125/77; TEMP 98; O2SAT 100
== END 2024-06-13 15:59 | disposition home or self-care (01) ==
LOC: ER 13:17
DX: K59.00 Constipation, unspecified (principal); K76.9 Liver disease, unspecified; K58.9 Irritable bowel syndrome, unspecified; Z79.01 Long term (current) use of anticoagulants; Z79.899 Other long term (current) drug therapy; Z86.718 Personal history of other venous thrombosis and embolism; Z88.0 Allergy status to penicillin; Z90.49 Acquired absence of other specified parts of digestive tract
CPT/HCPCS: 36415; 80048-TC; 80076-TC; 85025-TC

== ENCOUNTER 2024-07-10 03:17 | Emergency (ER) | payer OTHER ==
[~2024-07-10] VITALS: Ht 170.2 cm; Wt 79.8 kg
[~2024-07-10 03:17] MED LIST changes: +LACT10SO29 PO; +SENN8.6T19 PO
[2024-07-10] MEDS ORDERED: HYDR-4209 PO (05:53)
[2024-07-10] MEDS ORDERED: CYCL5TAB PO (05:53)
[2024-07-10 06:05] VITALS: BP 145/81; TEMP 98.2; O2SAT 98
== END 2024-07-10 06:06 | disposition home or self-care (01) ==
LOC: ER 03:27
DX: I82.432 Acute embolism and thrombosis of left popliteal vein (principal); M25.572 Pain in left ankle and joints of left foot; Z79.01 Long term (current) use of anticoagulants; Z79.899 Other long term (current) drug therapy; Z88.0 Allergy status to penicillin
CPT/HCPCS: 73610-TC; 73630-TC; 93971-TC

== ENCOUNTER 2024-12-01 15:40 | Emergency (ER) | payer OTHER ==
[~2024-12-01] VITALS: Ht 170.2 cm; Wt 79.4 kg
[~2024-12-01 15:40] MED LIST changes: +CYCL5TAB PO; +HYDR-4209 PO
[2024-12-01 15:56] VITALS: BP 119/81; TEMP 98.6
[2024-12-01 18:31] VITALS: O2SAT 94
== END 2024-12-01 18:33 | disposition home or self-care (01) ==
LOC: ER 15:50
DX: M79.662 Pain in left lower leg (principal); M79.602 Pain in left arm; Z79.01 Long term (current) use of anticoagulants; Z79.899 Other long term (current) drug therapy; Z86.718 Personal history of other venous thrombosis and embolism; Z88.0 Allergy status to penicillin; Z60.2 Problems related to living alone
CPT/HCPCS: 73552; 93971-TC